=== PATIENT | female | born 1955 | race Caucasian/White ===

== ENCOUNTER 2017-06-27 11:44 | Emergency (ER) | payer MEDICAID ==
[2017-06-27 12:07] VITALS: BP 138/93
[2017-06-27] MEDS ORDERED: SODIUM CHLORIDE 0.9% 1,000 ML IV ONE (12:17)
[2017-06-27 13:02] LABS: BASOPHILS # (AUTO) 0.1 10^3/uL (0.0-0.1); BASOPHILS % (AUTO) 1.1 %; EOSINOPHILS # (AUTO) 0.4 10^3/uL (0.0-0.7); EOSINOPHILS % (AUTO) 2.9 %; HCT - HEMATOCRIT 41.5 % (37.0-47.0); LYMPHOCYTES # (AUTO) 3.8 10^3/uL (1.5-3.5); LYMPHOCYTES % (AUTO) 30.5 %; MEAN CORPUSCULAR HGB CONC 33.8 g/dL (32.0-36.0); MEAN CORPUSCULAR VOLUME 88.7 fL (81.0-99.0); MONOCYTES # (AUTO) 0.9 10^3/uL (0.0-1.0); MONOCYTES % (AUTO) 7.5 %; NEUTROPHILS # (AUTO) 7.2 10^3/uL (1.5-6.6); RED BLOOD COUNT 4.68 10^6/uL (4.20-5.40); RED CELL DISTRIBUTION WIDTH 13.2 % (12.0-15.0); UNCORRECTED WHITE BLOOD COUNT 12.5 x10^3/uL; WHITE BLOOD COUNT 12.5 x10^3/uL (4.8-10.8)
--- NOTE | 2017-06-27 13:04 | ED Physician Documentation ---
History of Present Illness - Stated complaint Stated Complaint: UNCONTROLLED SHAKING - Chief complaint Chief Complaint: General - History obtained from History obtained from: Patient - History of Present Illness Pain level max: 0 Pain level now: 0 Improved by: nothing Worsened by: rest - Additonal information Additional information: Patient is a 61-year-old female who presents to the emergency department with tremors for the last several days. She states that this is actually been ongoing for several years, but worsening over the past few days. She states that she last used methamphetamines 1 month ago. States she is using marijuana several times a day. Has recently had an increase in her dose in [facility]. She also is changing primary care providers. Has an appointment in a few weeks with her new doctor. She denies any headaches, recent trauma. No fevers, chills. She has felt clammy. Review of Systems Constitutional: denies: Fever, Chills, Myalgias Nose: denies: Rhinorrhea / runny nose, Congestion Throat: denies: Oral lesions / sores, Sore throat Cardiac: denies: Chest pain / pressure Respiratory: denies: Cough GI: denies: Abdominal Pain, Nausea, Vomiting, Diarrhea Skin: denies: Rash Musculoskeletal: denies: Neck pain, Back pain Neurologic: denies: Focal weakness, Numbness, Headache PD PAST MEDICAL HISTORY - Past Medical History Past Medical History: Yes Cardiovascular: Hypertension, High cholesterol Respiratory: None Neuro: Tremors GI: None HEENT: None Psych: Depression, Anxiety, Post traumatic stress disorder Derm: None - Past Surgical History 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 - Present Medications Home Medications: Ambulatory Orders Medication Instructions Recorded Confirmed Clonazepam 1 mg PO 07/29/13 04/10/14 FLUoxetine [PROzac] 40 mg PO DAILY 07/29/13 04/10/14 Metoprolol Tartrate [Lopressor] 25 mg PO DAILY 07/29/13 04/10/14 Simvastatin [Zocor] 40 mg PO QPM 07/29/13 04/10/14 Ziprasidone HCl [Geodon] mg PO 04/10/14 04/10/14 - Allergies Allergies/Adverse Reactions: Allergies Allergy/AdvReac Type Severity Reaction Status Date / Time No Known Drug Allergies Allergy Verified 06/27/17 12:07 - Social History Does the pt smoke?: Yes Smoking Status: Current every day smoker Does the pt drink ETOH?: Yes Does the pt have substance abuse?: No - Immunizations Immunizations are current?: Yes - POLST Patient has POLST: No PD ED PE NORMAL - Vitals Vital signs reviewed: Yes - General General: Alert and oriented X 3, No acute distress, Well developed/nourished - HEENT HEENT: Moist mucous membranes, Pharynx benign - Neck Neck: Supple, no meningeal sign - Cardiac Cardiac: RRR, Strong equal pulses - Respiratory Respiratory: No respiratory distress, Clear bilaterally - Abdomen Abdomen: Soft, Non tender, Non distended - Derm Derm: Warm and dry, No rash - Extremities Extremities: Other (resting tremor, worse in the R UE. ) - Neuro Neuro: Alert and oriented X 3, dish carrier 2-12 intact, No motor deficit, No sensory deficit, Normal speech Eye Opening: Spontaneous Motor: Obeys Commands Verbal: Oriented GCS Score: 15 - Psych Psych: Normal mood, Normal affect Results - Vitals Vitals: Vital Signs - 24 hr 06/27/17 11:59 Temperature 35.8 C L Heart Rate 120 H Respiratory 18 Rate Blood Pressure 138/93 H O2 Saturation 96 Oxygen O2 Source Room air - Labs Labs: Laboratory Tests 06/27/17 06/27/17 06/27/17 12:06 12:37 12:37 WBC 12.5 H RBC 4.68 Hgb 14.0 Hct 41.5 MCV 88.7 MCH 30.0 MCHC 33.8 RDW 13.2 Plt Count 340 MPV 8.0 Neut # 7.2 H Lymph # 3.8 H Karnes # 0.9 Eos # 0.4 Baso # 0.1 Absolute Nucleated RBC 0.00 Nucleated RBC % 0.0 Sodium 138 Potassium 3.7 Chloride 103 Carbon Dioxide 25 Anion Gap 10.0 BUN 14 Creatinine 0.7 Estimated GFR (MDRD) 86 L Glucose 115 H POC Whole Bld Glucose 118 H Lactic Acid Calcium 8.7 Total Bilirubin 0.3 AST 22 ALT 25 Alkaline Phosphatase 104 Total Protein 7.3 Albumin 3.9 Globulin 3.4 Albumin/Globulin Ratio 1.1 Lipase 17 L Urine Color Urine Clarity Urine pH Ur Specific [place] Urine Protein Urine Glucose (UA) Urine Ketones Urine Occult Blood Urine Nitrite Urine Bilirubin Urine Urobilinogen Ur Leukocyte Esterase Ur Microscopic Review Urine Culture Comments Urine Opiates Screen Ur Oxycodone Screen Urine Methadone Screen Ur Propoxyphene Screen Ur Barbiturates Screen Ur Tricyclics Screen Ur Phencyclidine Scrn Ur Amphetamine Screen U Methamphetamines Scrn U Benzodiazepines Scrn Urine Cocaine Screen U Cannabinoids Screen 06/27/17 06/27/17 06/27/17 12:37 13:04 13:05 WBC RBC Hgb Hct MCV MCH MCHC RDW Plt Count MPV Neut # Lymph # Karnes # Eos # Baso # Absolute Nucleated RBC Nucleated RBC % Sodium Potassium Chloride Carbon Dioxide Anion Gap BUN Creatinine Estimated GFR (MDRD) Glucose POC Whole Bld Glucose Lactic Acid 2.0 Calcium Total Bilirubin AST ALT Alkaline Phosphatase Total Protein Albumin Globulin Albumin/Globulin Ratio Lipase Urine Color YELLOW Urine Clarity CLEAR Urine pH 6.0 Ur Specific [place] 1.010 Urine Protein NEGATIVE Urine Glucose (UA) NEGATIVE Urine Ketones NEGATIVE Urine Occult Blood NEGATIVE Urine Nitrite NEGATIVE Urine Bilirubin NEGATIVE Urine Urobilinogen 0.2 (NORMAL) Ur Leukocyte Esterase NEGATIVE Ur Microscopic Review NOT INDICATED Urine Culture Comments NOT INDICATED Urine Opiates Screen NEGATIVE Ur Oxycodone Screen NEGATIVE Urine Methadone Screen NEGATIVE Ur Propoxyphene Screen NEGATIVE Ur Barbiturates Screen NEGATIVE Ur Tricyclics Screen NEGATIVE Ur Phencyclidine Scrn NEGATIVE Ur Amphetamine Screen NEGATIVE U Methamphetamines Scrn NEGATIVE U Benzodiazepines Scrn NEGATIVE Urine Cocaine Screen NEGATIVE U Cannabinoids Screen POSITIVE H PD MEDICAL DECISION MAKING - ED course Complexity details: reviewed results, re-evaluated patient, considered differential, d/w patient ED course: Patient is a 61-year-old female who presents to the emergency department with a long history of resting tremor that she says is getting worse over the past few days. No acute findings on laboratory testing. No acute findings on neurological examination other than the resting tremor. No evidence of intracranial hemorrhage, tumor, mass. Will have her follow-up with her neurologist for further evaluation and care. Patient counseled regarding signs and symptoms for which I believe and urgent re-evaluation would be necessary. Patient with good understanding of and agreement to plan and is comfortable going home at this time This document was made in part using voice recognition software. While efforts are made to proofread this document, sound alike and grammatical errors may occur. Departure - Departure Disposition: 01 Home, Self Care Clinical Impression: Tremor Condition: Good Instructions: Essential Tremor ET Follow-Up: your,doctor in 1 week [Other] Comments: The cause of your tremors is unclear today. Your labs are normal. Return if you worsen. You will need further care and testing with your doctor. Discharge Date/Time: 06/27/17 14:34
[2017-06-27 13:13] LABS: ALBUMIN/GLOBULIN RATIO 1.1 (1.0-2.2); BILIRUBIN,TOTAL 0.3 mg/dL (0.2-1.0); CALCIUM 8.7 mg/dL (8.5-10.3); CREATININE 0.7 mg/dL (0.4-1.0); POTASSIUM 3.7 mmol/L (3.5-5.0); TOTAL PROTEIN 7.3 g/dL (6.7-8.2)
[2017-06-27 13:17] LABS: BILIRUBIN,URINE NEGATIVE (NEGATIVE)
[2017-06-27 13:19] LABS: UA CHARGE (STRIP ONLY) YES; UR CULTURE IF IND NOT INDICATED
== END 2017-06-27 14:34 | disposition home or self-care (01) ==
LOC: ED 11:44
DX: R25.1 Tremor, unspecified (principal); I10 Essential (primary) hypertension; F17.200 Nicotine dependence, unspecified, uncomplicated; F32.9 Major depressive disorder, single episode, unspecified; F41.9 Anxiety disorder, unspecified; Z79.899 Other long term (current) drug therapy
CPT/HCPCS: 36415; 80053; 80306; 81001; 81003; 83605; 83690; 85025; 87086; 93005; 99283

== ENCOUNTER 2017-09-07 15:26 | Outpatient (CLI) | payer MEDICAID ==
--- NOTE | 2017-09-08 10:54 | XRAY Report ---
TWO VIEW CHEST: 09/07/2017 CLINICAL INDICATION: Chest discomfort. FINDINGS: Frontal and lateral views of the chest demonstrate a normal cardiac silhouette. The lungs are clear. No effusion or pneumothorax is present. IMPRESSION: NORMAL CHEST. TD: 09/08/2017 10:54
== END 2017-09-07 15:27 | disposition home or self-care (01) ==
LOC: DI.N 15:26
PROVIDERS: ATTEND Nurse Practitioner Gerontology
DX: R07.89 Other chest pain (principal)
CPT/HCPCS: 71046

== ENCOUNTER 2017-09-26 10:58 | Outpatient (CLI) | payer MEDICAID ==
[2017-09-26 12:31] LABS: BASOPHILS # (AUTO) 0.1 10^3/uL (0.0-0.1); BASOPHILS % (AUTO) 1.2 %; EOSINOPHILS # (AUTO) 0.2 10^3/uL (0.0-0.7); EOSINOPHILS % (AUTO) 2.7 %; HGB - HEMOGLOBIN 12.8 g/dL (12.0-16.0); LYMPHOCYTES # (AUTO) 2.6 10^3/uL (1.5-3.5); LYMPHOCYTES % (AUTO) 36.4 %; MEAN CORPUSCULAR HEMOGLOBIN 30.6 pg (27.0-31.0); MEAN CORPUSCULAR HGB CONC 34.4 g/dL (32.0-36.0); MEAN CORPUSCULAR VOLUME 88.9 fL (81.0-99.0); MEAN PLATELET VOLUME 8.7 fL (7.9-10.8); MONOCYTES # (AUTO) 0.6 10^3/uL (0.0-1.0); MONOCYTES % (AUTO) 8.5 %; NEUTROPHILS # (AUTO) 3.7 10^3/uL (1.5-6.6); NEUTROPHILS % (AUTO) 51.2 %; PLT - PLATELET COUNT 307 10^3/uL (130-450); RED CELL DISTRIBUTION WIDTH 13.5 % (12.0-15.0); WHITE BLOOD COUNT 7.1 x10^3/uL (4.8-10.8)
[2017-09-26 12:42] LABS: ALBUMIN 3.8 g/dL (3.2-5.5); ALBUMIN/GLOBULIN RATIO 1.2 (1.0-2.2); ALKALINE PHOSPHATASE 98 IU/L (42-121); ALT ALANINE AMINOTRANSFERASE 19 IU/L (10-60); AST ASPARTATE AMINOTRANSFERASE 17 IU/L (10-42); BILIRUBIN,TOTAL 0.4 mg/dL (0.2-1.0); BUN - BLOOD UREA NITROGEN 14 mg/dL (6-20); CALCIUM 8.9 mg/dL (8.5-10.3); CARBON DIOXIDE - CO2 24 mmol/L (21-32); CHLORIDE 105 mmol/L (101-111); CHOL/HDL RATIO 3.1 (<4.4); CHOLESTEROL 143 mg/dL; CREATININE 0.6 mg/dL (0.4-1.0); GFR - MDRD 102 (>89); GLUCOSE 137 mg/dL (70-100); HDL CHOLESTEROL 46 mg/dL; LDL CHOLESTEROL,CALCULATED 72 mg/dL; LDL/HDL RATIO 1.6 (<4.4); SODIUM 137 mmol/L (135-145); TOTAL PROTEIN 6.9 g/dL (6.7-8.2); VLDL CHOLESTEROL 25 mg/dL
== END 2017-09-26 10:59 | disposition home or self-care (01) ==
LOC: LAB.N 10:58
PROVIDERS: ATTEND Nurse Practitioner Gerontology
DX: Z79.899 Other long term (current) drug therapy (principal)
CPT/HCPCS: 36415; 80053; 80061; 83721; 84443; 85025

== ENCOUNTER 2018-02-17 04:48 | Outpatient (CLI) | payer MEDICAID | END 2018-02-17 04:49 | disposition short-term general hospital (02) | LOC: EMS 04:48 | PROVIDERS: ATTEND Surgery | DX: R05 Cough (principal) | CPT/HCPCS: A0425; A0427; A0999 ==

== ENCOUNTER 2018-02-28 14:23 | Emergency (ER) | payer MEDICAID ==
[2018-02-28 14:57] LABS: BASOPHILS # (AUTO) 0.1 10^3/uL (0.0-0.1); BASOPHILS % (AUTO) 1.1 %; EOSINOPHILS # (AUTO) 0.1 10^3/uL (0.0-0.7); EOSINOPHILS % (AUTO) 1.5 %; LYMPHOCYTES # (AUTO) 3.1 10^3/uL (1.5-3.5); LYMPHOCYTES % (AUTO) 40.5 %; MEAN CORPUSCULAR HGB CONC 34.2 g/dL (32.0-36.0); MEAN CORPUSCULAR VOLUME 87.9 fL (81.0-99.0); MEAN PLATELET VOLUME 7.3 fL (7.9-10.8); MONOCYTES # (AUTO) 0.8 10^3/uL (0.0-1.0); MONOCYTES % (AUTO) 10.3 %; NEUTROPHILS # (AUTO) 3.6 10^3/uL (1.5-6.6); NEUTROPHILS % (AUTO) 46.6 %; PLT - PLATELET COUNT 339 10^3/uL (130-450); RED BLOOD COUNT 4.67 10^6/uL (4.20-5.40); RED CELL DISTRIBUTION WIDTH 13.1 % (12.0-15.0); WHITE BLOOD COUNT 7.7 x10^3/uL (4.8-10.8)
[2018-02-28 15:10] LABS: ALBUMIN/GLOBULIN RATIO 1.2 (1.0-2.2); BILIRUBIN,TOTAL 0.5 mg/dL (0.2-1.0); CREATININE 0.7 mg/dL (0.4-1.0); TOTAL PROTEIN 7.4 g/dL (6.7-8.2)
--- NOTE | 2018-02-28 15:34 | ED Physician Documentation ---
PD HPI ABD PAIN - Stated complaint Stated Complaint: FEVER,ACHES,ABD PX - Chief complaint Chief Complaint: Abd Pain - History obtained from History obtained from: Patient - History of Present Illness Timing - onset: How many weeks ago (she has had abd cramping and some loose stools for a week or so. Had had episode of coughing up a worm and went to [place] [facility]. She brought the worm with her but they did not send to lab or such, per patient. She has kept it in a specimen cup. She was treated with 3 days of Abendazole orally. She says she has had abd cramping since. General malaise and some aches.) Timing - duration: Weeks (1) Timing - details: Gradual onset, Still present, Waxing and waning Quality: Cramping, Aching. No: Fullness/distended Location: All over / everywhere Improved by: BM Worsened by: Eating Associated symptoms: Nausea. No: Fever, Vomiting, Diarrhea (but is loose), Constipation, Melena, Dysuria Similar symptoms before: Has not had sx before Recently seen: Emergency Dept (see above) Review of Systems Constitutional: reports: Myalgias, Fatigue. denies: Fever, Chills Nose: denies: Rhinorrhea / runny nose, Congestion Throat: denies: Sore throat Respiratory: denies: Cough GI: reports: Abdominal Pain, Nausea. 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 - Present Medications Home Medications: Ambulatory Orders Medication Instructions Recorded Confirmed Atorvastatin [Lipitor] 02/28/18 02/28/18 Dicyclomine [Bentyl] 10 mg PO QID PRN #15 capsule 02/28/18 Lisinopril [Zestril] 02/28/18 Lorazepam [Ativan] 1 mg PO BID PRN #12 tablet 02/28/18 Lurasidone HCl [Latuda] 02/28/18 Ondansetron Odt [Zofran] 4 mg TL Q6H PRN #15 tablet 02/28/18 risperiDONE [RisperDAL] 02/28/18 - Allergies Allergies/Adverse Reactions: Allergies Allergy/AdvReac Type Severity Reaction Status Date / Time No Known Drug Allergies Allergy Verified 02/28/18 14:32 - Social History Does the pt smoke?: Yes Smoking Status: Current every day smoker Does the pt drink ETOH?: Yes Does the pt have substance abuse?: No - Immunizations Immunizations are current?: Yes - POLST Patient has POLST: No PD ED PE NORMAL - Vitals Vital signs reviewed: Yes - General General: Alert and oriented X 3, No acute distress, Well developed/nourished, Other (she has the worm in speciment cup - dried and hard now of course. It is pale white colored and about 2 cm long. Can send it for ID to lab. ) - HEENT HEENT: Pharynx benign - Neck Neck: Supple, no meningeal sign, No adenopathy - Cardiac Cardiac: RRR, No murmur - Respiratory Respiratory: Clear bilaterally - Abdomen Abdomen: Normal bowel sounds (somewhat increased sounds), Soft, Non tender, Non distended, No organomegaly - Back Back: No CVA TTP - Derm Derm: Normal color, Warm and dry - Extremities Extremities: No tenderness to palpate, Normal ROM s pain - Neuro Neuro: Alert and oriented X 3, No motor deficit, Normal speech, Other (some resting tremor which she says is chronic from previous side effect to abilify. ) Results - Vitals Vitals: Vital Signs - 24 hr 02/28/18 02/28/18 02/28/18 14:29 15:15 17:46 Temperature 36 C L 37.3 C Heart Rate 126 H 120 H 59 L Respiratory 20 20 18 Rate Blood Pressure 114/94 H 131/96 H 106/78 O2 Saturation 98 97 96 02/28/18 18:39 Temperature 36.8 C Heart Rate 95 Respiratory 22 Rate Blood Pressure 137/101 H O2 Saturation 98 Oxygen O2 Source Room air - Labs Labs: Laboratory Tests 02/28/18 02/28/18 02/28/18 14:49 14:49 16:30 WBC 7.7 RBC 4.67 Hgb 14.0 Hct 41.0 MCV 87.9 MCH 30.0 MCHC 34.2 RDW 13.1 Plt Count 339 MPV 7.3 L Neut # (Auto) 3.6 Lymph # (Auto) 3.1 Wells # (Auto) 0.8 Eos # (Auto) 0.1 Baso # (Auto) 0.1 Absolute Nucleated RBC 0.00 Nucleated RBC % 0.0 Sodium 136 Potassium 4.1 Chloride 102 Carbon Dioxide 25 Anion Gap 9.0 BUN 11 Creatinine 0.7 Estimated GFR (MDRD) 85 L Glucose 122 H Lactic Acid Calcium 9.0 Magnesium 1.9 Total Bilirubin 0.5 AST 19 ALT 20 Alkaline Phosphatase 100 Total Protein 7.4 Albumin 4.0 Globulin 3.4 Albumin/Globulin Ratio 1.2 Lipase 23 Urine Color Urine Clarity Urine pH Ur Specific [place] Urine Protein Urine Glucose (UA) Urine Ketones Urine Occult Blood Urine Nitrite Urine Bilirubin Urine Urobilinogen Ur Leukocyte Esterase Ur Microscopic Review Urine Culture Comments 02/28/18 02/28/18 16:30 17:36 WBC RBC Hgb Hct MCV MCH MCHC RDW Plt Count MPV Neut # (Auto) Lymph # (Auto) Wells # (Auto) Eos # (Auto) Baso # (Auto) Absolute Nucleated RBC Nucleated RBC % Sodium Potassium Chloride Carbon Dioxide Anion Gap BUN Creatinine Estimated GFR (MDRD) Glucose Lactic Acid 1.3 Calcium Magnesium Total Bilirubin AST ALT Alkaline Phosphatase Total Protein Albumin Globulin Albumin/Globulin Ratio Lipase Urine Color YELLOW Urine Clarity CLEAR Urine pH 6.0 Ur Specific [place] 1.010 Urine Protein NEGATIVE Urine Glucose (UA) NEGATIVE Urine Ketones NEGATIVE Urine Occult Blood NEGATIVE Urine Nitrite NEGATIVE Urine Bilirubin NEGATIVE Urine Urobilinogen 0.2 (NORMAL) Ur Leukocyte Esterase NEGATIVE Ur Microscopic Review NOT INDICATED Urine Culture Comments NOT INDICATED PD MEDICAL DECISION MAKING - ED course Complexity details: considered differential (nonfocal abd pain/cramps without tenderness in setting of recent intestinal infestation (question pinworms) and antiparasitic meds. I think it is side effects/effects of those and would improve over next few days. Some anxiety overlay. ), d/w patient - Sepsis Event Vital Signs: Vital Signs - 24 hr 02/28/18 02/28/18 02/28/18 14:29 15:15 17:46 Temperature 36 C L 37.3 C Heart Rate 126 H 120 H 59 L Respiratory 20 20 18 Rate Blood Pressure 114/94 H 131/96 H 106/78 O2 Saturation 98 97 96 02/28/18 18:39 Temperature 36.8 C Heart Rate 95 Respiratory 22 Rate Blood Pressure 137/101 H O2 Saturation 98 Oxygen O2 Source Room air Departure - Departure Disposition: 01 Home, Self Care Clinical Impression: Tremor, Nausea, Abdominal cramping Condition: Stable Record reviewed to determine appropriate education?: Yes Instructions: ED Abdominal Pain Unkn Cause Follow-Up: Jessenia Locke ARNP [Primary Care Provider] - Prescriptions: Dicyclomine [Bentyl] 10 mg PO QID PRN #15 capsule PRN Reason: Spasms Lorazepam [Ativan] 1 mg PO BID PRN #12 tablet PRN Reason: Anxiety Ondansetron Odt [Zofran] 4 mg TL Q6H PRN #15 tablet PRN Reason: Nausea / Vomiting Comments: Drink lots of fluids. I think your stomach cramps are more related to the worms clearing out and this side effects of the anti-parasite medicines. I think your increased tremors and such are from that as well. Let us see how you do over the next few days with some Ativan twice a day if needed for the tremors and ondansetron if needed for nausea and dicyclomine for cramps as needed. Recheck if not improving over the next couple of days. Discharge Date/Time: 02/28/18 19:09
[2018-02-28] MEDS ORDERED: ONDANSETRON 4 MG/2 ML VIAL IVP STA (16:19)
[2018-02-28] MEDS ORDERED: KETOROLAC 60 MG/2 ML VIAL IVP STA (16:19)
[2018-02-28] MEDS ORDERED: SODIUM CHLORIDE 0.9% 1,000 ML IV ONE (16:19)
[2018-02-28] MEDS ORDERED: LORazepam 2 MG/ML VIAL IVP STA (16:20)
--- NOTE | 2018-02-28 17:03 | XRAY Report ---
Reason: cough and fever Procedure Date: 02/28/2018 Accession Number: [id number] / [id number] Procedure: XR - Chest 2 View X-Ray CPT Code: 55222 FULL RESULT: EXAM: CHEST RADIOGRAPHY EXAM DATE: 02/28/2018 04:31 PM. CLINICAL HISTORY: Cough and fever. COMPARISON: None. TECHNIQUE: 2 views. FINDINGS: Lungs/Pleura: No focal opacities evident. No pleural effusion. No pneumothorax. Normal volumes. Mediastinum: There is very mild atherosclerotic calcification the aortic arch. The heart size and mediastinal silhouette otherwise appears normal. Other: None. IMPRESSION: Negative for an acute cardiopulmonary abnormality. RADIA
[2018-02-28 17:41] LABS: BILIRUBIN,URINE NEGATIVE (NEGATIVE); GLUCOSE, URINE (UA) NEGATIVE (NEGATIVE); KETONES,URINE (UA) NEGATIVE (NEGATIVE); LEUKOCYTE ESTERASE, URINE NEGATIVE (NEGATIVE); NITRITE,URINE NEGATIVE (NEGATIVE); OCCULT BLOOD,URINE NEGATIVE (NEGATIVE); PROTEIN,URINE NEGATIVE (NEGATIVE); UROBILINOGEN,URINE 0.2 (NORMAL) E.U./dL (NORMAL)
[2018-02-28 17:42] LABS: CLARITY,URINE CLEAR (CLEAR)
[2018-02-28 18:40] VITALS: BP 137/101
== END 2018-02-28 19:09 | disposition home or self-care (01) ==
LOC: ED 14:23
DX: R25.1 Tremor, unspecified (principal); R11.0 Nausea; R10.9 Unspecified abdominal pain; I10 Essential (primary) hypertension; F17.200 Nicotine dependence, unspecified, uncomplicated; F41.9 Anxiety disorder, unspecified
CPT/HCPCS: 36415; 71046; 80053; 81003; 81599; 83605; 83690; 83735; 85025; 96361; 96374; 96375; 99283; J2060; 81001; 87086; 87177; 87209

== ENCOUNTER 2018-05-18 15:51 | Outpatient (CLI) | payer MEDICAID ==
[2018-05-18 16:29] LABS: MUDS CUTOFF CONCENTRATIONS CUTOFF CONC BELOW:
[2018-05-18 16:44] LABS: AMPHETAMINE SCREEN,URINE POSITIVE (NEGATIVE); BENZODIAZEPINES SCREEN, URINE NEGATIVE (NEGATIVE); COCAINE SCREEN URINE NEGATIVE (NEGATIVE); METHADONE SCREEN, URINE NEGATIVE (NEGATIVE); METHAMPHETAMINES SCREEN, URINE POSITIVE (NEGATIVE); OPIATE SCREEN, URINE NEGATIVE (NEGATIVE); OXYCODONE SCREEN, URINE NEGATIVE (NEGATIVE); PROPOXYPHENE SCREEN, URINE NEGATIVE (NEGATIVE); TRICYCLIC ANTIDEPRESSANT,URINE NEGATIVE (NEGATIVE)
== END 2018-05-18 15:52 | disposition home or self-care (01) ==
LOC: LAB 15:51
PROVIDERS: ATTEND Nurse Practitioner Psychiatric/Mental Health
DX: F33.3 Major depressive disorder, recurrent, severe with psychotic symptoms (principal)
CPT/HCPCS: 80306

== ENCOUNTER 2018-08-25 14:37 | Emergency (ER) | payer MEDICAID ==
[2018-08-25 14:54] VITALS: BP 124/76
--- NOTE | 2018-08-25 16:17 | ED Physician Documentation ---
History of Present Illness - Stated complaint Stated Complaint: RASH - Chief complaint Chief Complaint: Wound - History obtained from History obtained from: Patient - History of Present Illness Timing: Other (several months) Pain level max: 3 Pain level now: 2 Improved by: rest Worsened by: walking - Additonal information Additional information: 62-year-old female presents to the emergency department complaining of a rash to the scalp for the past several months. She also complains of a rash on her arms mainly on her hands and fingers. She also is complaining of left hip pain for the past 6 weeks. Worse with walking, better with rest. Has not taken anything for this. No fall. She has a history of methamphetamine use, states she has not used in 8 months, and a stated that her test was positive for methamphetamines in May she states that she "did" methamphetamines at that time but was not "using them". Denies any current methamphetamine use. 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 - Present Medications Home Medications: Ambulatory Orders Medication Instructions Recorded Confirmed Atorvastatin [Lipitor] 10 mg ORAL DAILY 02/28/18 02/28/18 Lisinopril [Zestril] 10 mg ORAL DAILY 02/28/18 Lurasidone HCl [Latuda] 8 mg ORAL DAILY 02/28/18 Ketoconazole 1 applic TP ONCE #1 shampoo 08/25/18 Meloxicam [Mobic] 15 mg PO DAILY PRN #20 tablet 08/25/18 - Allergies Allergies/Adverse Reactions: Allergies Allergy/AdvReac Type Severity Reaction Status Date / Time No Known Drug Allergies Allergy Verified 02/28/18 14:32 - Social History Does the pt smoke?: Yes Smoking Status: Current every day smoker Does the pt drink ETOH?: Yes Does the pt have substance abuse?: No - Immunizations Immunizations are current?: Yes - POLST Patient has POLST: No PD ED PE NORMAL - Vitals Vital signs reviewed: Yes - General General: Alert and oriented X 3, No acute distress - HEENT HEENT: Moist mucous membranes - Neck Neck: Supple, no meningeal sign - Cardiac Cardiac: RRR - Respiratory Respiratory: No respiratory distress, Clear bilaterally - Abdomen Abdomen: Soft, Non tender - Derm Derm: Warm and dry, No rash (no rash over the arms or chest), Other (Does have a slight scaly rash to the top of the head. Excoriation laguans present.) - Extremities Extremities: No tenderness to palpate, Normal ROM s pain, No edema, Other (Normal examination of the bilateral hips) - Neuro Neuro: Alert and oriented X 3, No motor deficit, No sensory deficit Results - Vitals Vitals: Vital Signs - 24 hr 08/25/18 14:49 Temperature 36.6 C Heart Rate 107 H Respiratory 18 Rate Blood Pressure 124/76 O2 Saturation 98 Oxygen O2 Source Room air PD MEDICAL DECISION MAKING - ED course Complexity details: considered differential, d/w patient ED course: Patient with what appears to be tinea capitis as well as osteoarthritis of the hips. There is no visible rash on the arms. Will prescribe ketoconazole shampoo and meloxicam. We will have her follow-up with her doctor for further evaluation and care. Ambulating with a steady gait. No limp. Patient counseled regarding signs and symptoms for which I believe and urgent re- evaluation would be necessary. Patient with good understanding of and agreement to plan and is comfortable going home at this time This document was made in part using voice recognition software. While efforts are made to proofread this document, sound alike and grammatical errors may occur. Departure - Departure Disposition: 01 Home, Self Care Clinical Impression: Tinea capitis Osteoarthritis Qualifiers: Osteoarthritis location: hip Osteoarthritis type: primary Laterality: left Qualified Code(s): M16.12 - Unilateral primary osteoarthritis, left hip Condition: Good Instructions: ED Degenerative Joint Disease, ED Dermatitis Ringworm Scalp Follow-Up: Jessenia Locke ARNP [Primary Care Provider] - Within 1 week Prescriptions: Ketoconazole 1 applic TP ONCE #1 shampoo Meloxicam [Mobic] 15 mg PO DAILY PRN #20 tablet PRN Reason: pain Comments: Use the medications as prescribed. Return if you worsen. Follow-up with your doctor for further care.
== END 2018-08-25 16:27 | disposition home or self-care (01) ==
LOC: ED 14:37
DX: B35.0 Tinea barbae and tinea capitis (principal); M16.12 Unilateral primary osteoarthritis, left hip; I10 Essential (primary) hypertension; F17.200 Nicotine dependence, unspecified, uncomplicated
CPT/HCPCS: 99283

== ENCOUNTER 2018-09-03 13:19 | Outpatient (CLI) | payer MEDICAID | END 2018-09-03 13:20 | disposition home or self-care (01) | LOC: RT.N 13:19 | PROVIDERS: ATTEND Nurse Practitioner Gerontology | DX: Z79.899 Other long term (current) drug therapy (principal) | CPT/HCPCS: 93005 ==

== ENCOUNTER 2018-09-03 13:45 | Outpatient (CLI) | payer MEDICAID ==
[2018-09-03 19:55] LABS: BASOPHILS # (AUTO) 0.1 10^3/uL (0.0-0.1); BASOPHILS % (AUTO) 0.9 %; EOSINOPHILS # (AUTO) 0.1 10^3/uL (0.0-0.7); EOSINOPHILS % (AUTO) 1.3 %; HGB - HEMOGLOBIN 13.4 g/dL (12.0-16.0); LYMPHOCYTES # (AUTO) 3.1 10^3/uL (1.5-3.5); LYMPHOCYTES % (AUTO) 44.4 %; MEAN CORPUSCULAR HEMOGLOBIN 29.6 pg (27.0-31.0); MEAN CORPUSCULAR HGB CONC 32.9 g/dL (32.0-36.0); MEAN CORPUSCULAR VOLUME 89.9 fL (81.0-99.0); MEAN PLATELET VOLUME 8.2 fL (7.9-10.8); MONOCYTES # (AUTO) 0.5 10^3/uL (0.0-1.0); MONOCYTES % (AUTO) 7.5 %; NEUTROPHILS # (AUTO) 3.2 10^3/uL (1.5-6.6); NEUTROPHILS % (AUTO) 45.9 %; PLT - PLATELET COUNT 348 10^3/uL (130-450); RED BLOOD COUNT 4.53 10^6/uL (4.20-5.40); RED CELL DISTRIBUTION WIDTH 13.8 % (12.0-15.0); WHITE BLOOD COUNT 7.1 x10^3/uL (4.8-10.8)
== END 2018-09-03 23:59 | disposition home or self-care (01) ==
LOC: LAB.N 13:45
PROVIDERS: ATTEND Nurse Practitioner Psychiatric/Mental Health
DX: F33.3 Major depressive disorder, recurrent, severe with psychotic symptoms (principal)
CPT/HCPCS: 36415; 85025

== ENCOUNTER 2019-01-01 15:58 | Outpatient (CLI) | payer MEDICAID | END 2019-01-01 15:59 | disposition critical access hospital (66) | LOC: EMS 15:58 | PROVIDERS: ATTEND Surgery | DX: R44.0 Auditory hallucinations (principal) | CPT/HCPCS: A0425; A0429; A0999 ==

== ENCOUNTER 2019-01-01 16:45 | Emergency (ER) | payer MEDICAID ==
[2019-01-01 17:16] LABS: BASOPHILS # (AUTO) 0.1 10^3/uL (0.0-0.1); BASOPHILS % (AUTO) 0.6 %; EOSINOPHILS # (AUTO) 0.1 10^3/uL (0.0-0.7); EOSINOPHILS % (AUTO) 0.9 %; HGB - HEMOGLOBIN 13.3 g/dL (12.0-16.0); LYMPHOCYTES % (AUTO) 25.5 %; MEAN CORPUSCULAR HGB CONC 33.2 g/dL (32.0-36.0); MEAN CORPUSCULAR VOLUME 90.3 fL (81.0-99.0); MEAN PLATELET VOLUME 9.9 fL (7.9-10.8); MONOCYTES # (AUTO) 0.6 10^3/uL (0.0-1.0); NEUTROPHILS # (AUTO) 5.1 10^3/uL (1.5-6.6); NEUTROPHILS % (AUTO) 64.7 %; PLT - PLATELET COUNT 314 10^3/uL (130-450); RED BLOOD COUNT 4.44 10^6/uL (4.20-5.40); RED CELL DISTRIBUTION WIDTH 12.4 % (12.0-15.0); WHITE BLOOD COUNT 7.9 x10^3/uL (4.8-10.8)
[2019-01-01 17:31] LABS: ACETAMINOPHEN < 10 ug/mL (10-30); ALBUMIN 4.3 g/dL (3.2-5.5); ALBUMIN/GLOBULIN RATIO 1.4 (1.0-2.2); ALKALINE PHOSPHATASE 88 IU/L (42-121); ALT ALANINE AMINOTRANSFERASE 22 IU/L (10-60); AST ASPARTATE AMINOTRANSFERASE 18 IU/L (10-42); BILIRUBIN,TOTAL 0.7 mg/dL (0.2-1.0); BUN - BLOOD UREA NITROGEN 24 mg/dL (6-20); CALCIUM 9.1 mg/dL (8.5-10.3); CARBON DIOXIDE - CO2 25 mmol/L (21-32); CHLORIDE 102 mmol/L (101-111); CREATININE 0.7 mg/dL (0.4-1.0); GFR - MDRD 85 (>89); GLUCOSE 125 mg/dL (70-100); LIPASE 24 U/L (22-51); SALICYLATE < 6.0 mg/dL; SODIUM 140 mmol/L (135-145); TOTAL PROTEIN 7.3 g/dL (6.7-8.2)
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
[2019-01-01 21:16] LABS: MUDS CUTOFF CONCENTRATIONS CUTOFF CONC BELOW:
[2019-01-01 21:18] LABS: BILIRUBIN,URINE NEGATIVE (NEGATIVE); GLUCOSE, URINE (UA) NEGATIVE (NEGATIVE); KETONES,URINE (UA) 15 mg/dL (NEGATIVE); LEUKOCYTE ESTERASE, URINE NEGATIVE (NEGATIVE); NITRITE,URINE NEGATIVE (NEGATIVE); OCCULT BLOOD,URINE NEGATIVE (NEGATIVE); PROTEIN,URINE NEGATIVE (NEGATIVE); UROBILINOGEN,URINE 0.2 (NORMAL) E.U./dL (NORMAL)
[2019-01-01 21:19] VITALS: BP 167/103
[2019-01-01 21:22] LABS: CLARITY,URINE CLEAR (CLEAR)
[2019-01-01 21:29] LABS: COCAINE SCREEN URINE NEGATIVE (NEGATIVE)
[2019-01-01 21:30] LABS: AMPHETAMINE SCREEN,URINE POSITIVE (NEGATIVE); BENZODIAZEPINES SCREEN, URINE NEGATIVE (NEGATIVE); METHADONE SCREEN, URINE NEGATIVE (NEGATIVE); METHAMPHETAMINES SCREEN, URINE POSITIVE (NEGATIVE); OPIATE SCREEN, URINE NEGATIVE (NEGATIVE); OXYCODONE SCREEN, URINE NEGATIVE (NEGATIVE); PROPOXYPHENE SCREEN, URINE NEGATIVE (NEGATIVE); TRICYCLIC ANTIDEPRESSANT,URINE NEGATIVE (NEGATIVE)
== END 2019-01-01 21:19 | disposition home or self-care (01) ==
LOC: EDUNIT# → ED 16:45
DX: F15.151 Other stimulant abuse with stimulant-induced psychotic disorder with hallucinations (principal); I10 Essential (primary) hypertension; F17.200 Nicotine dependence, unspecified, uncomplicated
CPT/HCPCS: 80053; 80306; 80307; 80320; 80329; 81001; 81003; 83690; 84443; 85025; 87086; 99283; 99284

== ENCOUNTER 2019-03-10 20:55 | Outpatient (CLI) | payer MEDICAID | END 2019-03-10 20:56 | disposition EMS.NT | LOC: EMS 20:55 | PROVIDERS: ATTEND Surgery | DX: R44.0 Auditory hallucinations (principal) ==

== ENCOUNTER 2019-03-19 14:29 | Outpatient (CLI) | payer MEDICAID ==
--- NOTE | 2019-03-20 17:25 | XRAY Report ---
Reason: R elbow pain Procedure Date: 03/19/2019 Accession Number: [id number] / [id number] Procedure: XRN - Elbow 3 View RT CPT Code: FULL RESULT: EXAM: RIGHT ELBOW RADIOGRAPHY EXAM DATE: 03/19/2019 03:26 PM. CLINICAL HISTORY: R elbow pain. COMPARISON: None. TECHNIQUE: 3 views. FINDINGS: Bones: Normal. No fractures or bone lesions. Joints: Normal. No effusion. No subluxation. Soft Tissues: Normal. No soft tissue swelling. IMPRESSION: Normal elbow radiography. RADIA
== END 2019-03-19 14:30 | disposition home or self-care (01) ==
LOC: DI.N 14:29
PROVIDERS: ATTEND Nurse Practitioner Gerontology
DX: M25.521 Pain in right elbow (principal)

== ENCOUNTER 2019-04-05 13:34 | Emergency (ER) | payer MEDICAID ==
[2019-04-05] MEDS ORDERED: SODIUM CHLORIDE 0.9% 1,000 ML IV ONE (14:05)
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
[2019-04-05 14:18] LABS: BASOPHILS # (AUTO) 0.1 10^3/uL (0.0-0.1); EOSINOPHILS # (AUTO) 0.1 10^3/uL (0.0-0.7); EOSINOPHILS % (AUTO) 1.2 %; HGB - HEMOGLOBIN 12.7 g/dL (12.0-16.0); LYMPHOCYTES # (AUTO) 2.5 10^3/uL (1.5-3.5); LYMPHOCYTES % (AUTO) 30.6 %; MEAN CORPUSCULAR HEMOGLOBIN 30.4 pg (27.0-31.0); MEAN CORPUSCULAR HGB CONC 33.1 g/dL (32.0-36.0); MEAN CORPUSCULAR VOLUME 91.9 fL (81.0-99.0); MEAN PLATELET VOLUME 9.7 fL (7.9-10.8); MONOCYTES # (AUTO) 0.7 10^3/uL (0.0-1.0); MONOCYTES % (AUTO) 8.2 %; NEUTROPHILS # (AUTO) 4.7 10^3/uL (1.5-6.6); NEUTROPHILS % (AUTO) 58.6 %; PLT - PLATELET COUNT 329 10^3/uL (130-450); RED BLOOD COUNT 4.18 10^6/uL (4.20-5.40); RED CELL DISTRIBUTION WIDTH 12.9 % (12.0-15.0)
[2019-04-05 14:32] LABS: ACETAMINOPHEN < 10 ug/mL (10-30); ALBUMIN 4.3 g/dL (3.2-5.5); ALBUMIN/GLOBULIN RATIO 1.4 (1.0-2.2); ALKALINE PHOSPHATASE 88 IU/L (42-121); ALT ALANINE AMINOTRANSFERASE 20 IU/L (10-60); AST ASPARTATE AMINOTRANSFERASE 15 IU/L (10-42); BILIRUBIN,TOTAL 0.5 mg/dL (0.2-1.0); BUN - BLOOD UREA NITROGEN 24 mg/dL (6-20); CALCIUM 9.1 mg/dL (8.5-10.3); CARBON DIOXIDE - CO2 24 mmol/L (21-32); CHLORIDE 106 mmol/L (101-111); CREATININE 0.6 mg/dL (0.4-1.0); GFR - MDRD 102 (>89); GLUCOSE 109 mg/dL (70-100); LIPASE 26 U/L (22-51); SALICYLATE < 6.0 mg/dL; SODIUM 141 mmol/L (135-145); TOTAL PROTEIN 7.4 g/dL (6.7-8.2)
[2019-04-05] MEDS ORDERED: LORazepam 2 MG/ML VIAL IVP STA (15:07)
[2019-04-05 16:29] VITALS: BP 113/83
[2019-04-05 16:50] LABS: MUDS CUTOFF CONCENTRATIONS CUTOFF CONC BELOW:
[2019-04-05 16:59] LABS: BILIRUBIN,URINE NEGATIVE (NEGATIVE); GLUCOSE, URINE (UA) NEGATIVE (NEGATIVE); KETONES,URINE (UA) NEGATIVE (NEGATIVE); LEUKOCYTE ESTERASE, URINE NEGATIVE (NEGATIVE); NITRITE,URINE NEGATIVE (NEGATIVE); OCCULT BLOOD,URINE NEGATIVE (NEGATIVE); PH,URINE 5.5 PH (5.0-7.5); PROTEIN,URINE NEGATIVE (NEGATIVE); UROBILINOGEN,URINE 0.2 (NORMAL) E.U./dL (NORMAL)
[2019-04-05 17:02] LABS: CLARITY,URINE CLEAR (CLEAR)
[2019-04-05 17:10] LABS: AMPHETAMINE SCREEN,URINE POSITIVE (NEGATIVE); BENZODIAZEPINES SCREEN, URINE NEGATIVE (NEGATIVE); COCAINE SCREEN URINE NEGATIVE (NEGATIVE); METHADONE SCREEN, URINE NEGATIVE (NEGATIVE); METHAMPHETAMINES SCREEN, URINE POSITIVE (NEGATIVE); OPIATE SCREEN, URINE NEGATIVE (NEGATIVE); OXYCODONE SCREEN, URINE NEGATIVE (NEGATIVE); PROPOXYPHENE SCREEN, URINE NEGATIVE (NEGATIVE); TRICYCLIC ANTIDEPRESSANT,URINE NEGATIVE (NEGATIVE)
== END 2019-04-05 17:25 | disposition home or self-care (01) ==
LOC: ED 13:34
DX: F15.10 Other stimulant abuse, uncomplicated (principal); T75.4XXA Electrocution, initial encounter; I10 Essential (primary) hypertension; F17.200 Nicotine dependence, unspecified, uncomplicated
CPT/HCPCS: 36415; 80053; 80306; 80307; 80320; 80329; 81003; 83690; 84443; 85025; 96360; 99283; 99284; J2060; 81001; 87086

== ENCOUNTER 2019-05-05 09:13 | Outpatient (CLI) | payer MEDICAID | END 2019-05-05 09:14 | disposition EMS.NT | LOC: EMS 09:13 | PROVIDERS: ATTEND Surgery | DX: H57.13 Ocular pain, bilateral (principal) ==

== ENCOUNTER 2019-06-07 12:55 | Emergency (ER) | payer MEDICAID ==
--- NOTE | 2019-06-07 13:09 | ED Physician Documentation ---
PD HPI MHE - Stated complaint Stated Complaint: MHE - Chief complaint Chief Complaint: MHE - History obtained from History obtained from: Patient - History of Present Illness Primary symptom: Other (63-year-old woman brought in detained for mental health evaluation. She denies using methamphetamines, but she has a significant history of this. 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 - Present Medications Home Medications: Ambulatory Orders Medication Instructions Recorded Confirmed Atorvastatin [Lipitor] 10 mg ORAL DAILY 02/28/18 02/28/18 Lisinopril [Zestril] 10 mg ORAL DAILY 02/28/18 Lurasidone HCl [Latuda] 8 mg ORAL DAILY 02/28/18 Ketoconazole 1 applic TP ONCE #1 shampoo 08/25/18 Meloxicam [Mobic] 15 mg PO DAILY PRN #20 tablet 08/25/18 - Allergies Allergies/Adverse Reactions: Allergies Allergy/AdvReac Type Severity Reaction Status Date / Time No Known Drug Allergies Allergy Verified 06/07/19 12:58 - Social History Does the pt smoke?: Yes Smoking Status: Current every day smoker Does the pt drink ETOH?: Yes Does the pt have substance abuse?: No - Immunizations Immunizations are current?: Yes - POLST Patient has POLST: No PD ED PE NORMAL - Vitals Vital signs reviewed: Yes - General General: Other (She is agitated and hypervigilant; Disheveled) - HEENT HEENT: PERRL, EOMI - Neck Neck: Supple, no meningeal sign, No bony TTP - Cardiac Cardiac: RRR, No murmur - Respiratory Respiratory: No respiratory distress, Clear bilaterally - Abdomen Abdomen: Soft, Non tender - Back Back: No CVA TTP, No spinal TTP - Derm Derm: Normal color, Warm and dry - Neuro Neuro: Alert and oriented X 3, No motor deficit, No sensory deficit, Normal speech - Psych Psych: Other (Agitated, intermittently cooperative.) Results - Vitals Vitals: Vital Signs - 24 hr 06/07/19 06/07/19 06/08/19 12:58 23:19 07:39 Temperature 36.8 C 36.5 C Heart Rate 120 H 95 86 Respiratory 16 22 18 Rate Blood Pressure 164/94 H 110/83 H 150/115 H O2 Saturation 98 97 96 Oxygen O2 Source Room air - Labs Labs: Laboratory Tests 06/07/19 06/07/19 06/07/19 13:15 13:15 13:15 WBC 7.8 RBC 4.22 Hgb 12.7 Hct 39.1 MCV 92.7 MCH 30.1 MCHC 32.5 RDW 12.7 Plt Count 343 MPV 10.2 Neut # (Auto) 4.5 Lymph # (Auto) 2.5 [place] # (Auto) 0.7 Eos # (Auto) 0.0 Baso # (Auto) 0.1 Absolute Nucleated RBC 0.00 Nucleated RBC % 0.0 Sodium 139 Potassium 3.7 Chloride 103 Carbon Dioxide 24 Anion Gap 12.0 BUN 24 H Creatinine 0.6 Estimated GFR (MDRD) 102 Glucose 113 H Calcium 9.4 Total Bilirubin 0.8 AST 23 ALT 20 Alkaline Phosphatase 77 Total Protein 7.2 Albumin 4.4 Globulin 2.8 Albumin/Globulin Ratio 1.6 Lipase 22 TSH 0.60 Urine Color Urine Clarity Urine pH Ur Specific [place] Urine Protein Urine Glucose (UA) Urine Ketones Urine Occult Blood Urine Nitrite Urine Bilirubin Urine Urobilinogen Ur Leukocyte Esterase Ur Microscopic Review Urine Culture Comments Salicylates < 6.0 Urine Opiates Screen Ur Oxycodone Screen Urine Methadone Screen Ur Propoxyphene Screen Acetaminophen < 10 L Ur Barbiturates Screen Ur Tricyclics Screen Ur Phencyclidine Scrn Ur Amphetamine Screen U Methamphetamines Scrn U Benzodiazepines Scrn Urine Cocaine Screen U Cannabinoids Screen Ethyl Alcohol < 5.0 06/07/19 14:50 WBC RBC Hgb Hct MCV MCH MCHC RDW Plt Count MPV Neut # (Auto) Lymph # (Auto) [place] # (Auto) Eos # (Auto) Baso # (Auto) Absolute Nucleated RBC Nucleated RBC % Sodium Potassium Chloride Carbon Dioxide Anion Gap BUN Creatinine Estimated GFR (MDRD) Glucose Calcium Total Bilirubin AST ALT Alkaline Phosphatase Total Protein Albumin Globulin Albumin/Globulin Ratio Lipase TSH Urine Color YELLOW Urine Clarity CLEAR Urine pH 5.5 Ur Specific [place] 1.025 Urine Protein NEGATIVE Urine Glucose (UA) NEGATIVE Urine Ketones [place] Urine Occult Blood NEGATIVE Urine Nitrite NEGATIVE Urine Bilirubin NEGATIVE Urine Urobilinogen 0.2 (NORMAL) Ur Leukocyte Esterase NEGATIVE Ur Microscopic Review NOT INDICATED Urine Culture Comments NOT INDICATED Salicylates Urine Opiates Screen NEGATIVE Ur Oxycodone Screen NEGATIVE Urine Methadone Screen NEGATIVE Ur Propoxyphene Screen NEGATIVE Acetaminophen Ur Barbiturates Screen NEGATIVE Ur Tricyclics Screen NEGATIVE Ur Phencyclidine Scrn NEGATIVE Ur Amphetamine Screen POSITIVE H U Methamphetamines Scrn POSITIVE H U Benzodiazepines Scrn NEGATIVE Urine Cocaine Screen NEGATIVE U Cannabinoids Screen POSITIVE H Ethyl Alcohol PD MEDICAL DECISION MAKING - ED course ED course: 63-year-old woman with history of methamphetamine abuse presents brought in detained for mental health evaluation. She has complaints of basically parasitosis. Did require some sedation here she was quite agitated. Social work deferred to the DCR and TYLER Hairston came in and saw her and is trying to find secure detox facility for her. Care to Dr Santos at shift chg to F/U on DCR dispo and complete cobras. She is stable for transport for detox/psych issues. Departure - Departure Disposition: [facility] Hosp/Unit DC/Xfer Clinical Impression: Methamphetamine abuse Condition: Good Record reviewed to determine appropriate education?: Yes Instructions: ED Drug Abuse General Discharge Date/Time: 06/08/19 08:21
[2019-06-07 13:23] LABS: BASOPHILS # (AUTO) 0.1 10^3/uL (0.0-0.1); EOSINOPHILS % (AUTO) 0.4 %; HGB - HEMOGLOBIN 12.7 g/dL (12.0-16.0); LYMPHOCYTES # (AUTO) 2.5 10^3/uL (1.5-3.5); LYMPHOCYTES % (AUTO) 31.8 %; MEAN CORPUSCULAR HEMOGLOBIN 30.1 pg (27.0-31.0); MEAN CORPUSCULAR HGB CONC 32.5 g/dL (32.0-36.0); MEAN CORPUSCULAR VOLUME 92.7 fL (81.0-99.0); MEAN PLATELET VOLUME 10.2 fL (7.9-10.8); MONOCYTES # (AUTO) 0.7 10^3/uL (0.0-1.0); MONOCYTES % (AUTO) 8.8 %; NEUTROPHILS # (AUTO) 4.5 10^3/uL (1.5-6.6); NEUTROPHILS % (AUTO) 57.7 %; PLT - PLATELET COUNT 343 10^3/uL (130-450); RED BLOOD COUNT 4.22 10^6/uL (4.20-5.40); RED CELL DISTRIBUTION WIDTH 12.7 % (12.0-15.0); WHITE BLOOD COUNT 7.8 x10^3/uL (4.8-10.8)
[2019-06-07 14:19] LABS: ACETAMINOPHEN < 10 ug/mL (10-30); ALBUMIN 4.4 g/dL (3.2-5.5); ALBUMIN/GLOBULIN RATIO 1.6 (1.0-2.2); ALKALINE PHOSPHATASE 77 IU/L (42-121); ALT ALANINE AMINOTRANSFERASE 20 IU/L (10-60); AST ASPARTATE AMINOTRANSFERASE 23 IU/L (10-42); BILIRUBIN,TOTAL 0.8 mg/dL (0.2-1.0); BUN - BLOOD UREA NITROGEN 24 mg/dL (6-20); CALCIUM 9.4 mg/dL (8.5-10.3); CARBON DIOXIDE - CO2 24 mmol/L (21-32); CHLORIDE 103 mmol/L (101-111); CREATININE 0.6 mg/dL (0.4-1.0); GFR - MDRD 102 (>89); GLUCOSE 113 mg/dL (70-100); LIPASE 22 U/L (22-51); SALICYLATE < 6.0 mg/dL; SODIUM 139 mmol/L (135-145); TOTAL PROTEIN 7.2 g/dL (6.7-8.2)
[2019-06-07 15:07] LABS: MUDS CUTOFF CONCENTRATIONS CUTOFF CONC BELOW:
[2019-06-07 15:10] LABS: BILIRUBIN,URINE NEGATIVE (NEGATIVE); GLUCOSE, URINE (UA) NEGATIVE (NEGATIVE); KETONES,URINE (UA) TRACE mg/dL (NEGATIVE); LEUKOCYTE ESTERASE, URINE NEGATIVE (NEGATIVE); NITRITE,URINE NEGATIVE (NEGATIVE); OCCULT BLOOD,URINE NEGATIVE (NEGATIVE); PH,URINE 5.5 PH (5.0-7.5); PROTEIN,URINE NEGATIVE (NEGATIVE); UROBILINOGEN,URINE 0.2 (NORMAL) E.U./dL (NORMAL)
[2019-06-07 15:12] LABS: CLARITY,URINE CLEAR (CLEAR)
[2019-06-07 15:29] LABS: AMPHETAMINE SCREEN,URINE POSITIVE (NEGATIVE); BENZODIAZEPINES SCREEN, URINE NEGATIVE (NEGATIVE); COCAINE SCREEN URINE NEGATIVE (NEGATIVE); METHADONE SCREEN, URINE NEGATIVE (NEGATIVE); METHAMPHETAMINES SCREEN, URINE POSITIVE (NEGATIVE); OPIATE SCREEN, URINE NEGATIVE (NEGATIVE); OXYCODONE SCREEN, URINE NEGATIVE (NEGATIVE); PROPOXYPHENE SCREEN, URINE NEGATIVE (NEGATIVE); TRICYCLIC ANTIDEPRESSANT,URINE NEGATIVE (NEGATIVE)
[2019-06-07] MEDS ORDERED: OLANZapine 10 MG VIAL IM STA (16:06)
[2019-06-08] MEDS ORDERED: OLANZapine ODT 5 MG TABLET TL STA (00:05)
[2019-06-08] MEDS ORDERED: ACETAMINOPHEN 325 MG TABLET PO STA (05:34)
[2019-06-08] MEDS ORDERED: LORazepam 1 MG TABLET PO STA (07:12)
[2019-06-08 07:42] VITALS: BP 150/115
== END 2019-06-08 08:21 ==
LOC: ED 12:55
DX: F15.10 Other stimulant abuse, uncomplicated (principal); I10 Essential (primary) hypertension; F17.200 Nicotine dependence, unspecified, uncomplicated
CPT/HCPCS: 36415; 80053; 80306; 80307; 80320; 80329; 81003; 83690; 84443; 85025; 96372; 99281; 99283; A9270; J8499; 81001; 87086

== ENCOUNTER 2021-04-12 08:44 | Emergency (ER) | payer MEDICAID ==
[2021-04-12 08:52] VITALS: BP 123/79
--- NOTE | 2021-04-12 09:29 | ED Physician Documentation ---
PD HPI LOWER EXT INJURY - Stated complaint Stated Complaint: RT KNEE PX - Chief complaint Chief Complaint: Ext Problem - History obtained from History obtained from: Patient - History of Present Illness PD HPI LOW EXT INJURY LOCATION: Right, Knee Type of injury: Fall (she had tripped and fell forward onto right knee without pain initially. Now with a week of anterior pain, and feeling of clicking and poping of knee with ROM and walking.) Where injury occurred: Street Timing - onset: How many weeks ago (1) Timing - duration: Weeks (1) Timing - details: Gradual onset, Still present Improved by: Rest Worsened by: Palpating Associated symptoms: Swelling. 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 - Present Medications Home Medications: Ambulatory Orders Medication Instructions Recorded Confirmed Meloxicam [Mobic] 7.5 mg PO BID 15 Days #30 tablet 04/12/21 - Allergies Allergies/Adverse Reactions: Allergies Allergy/AdvReac Type Severity Reaction Status Date / Time No Known Drug Allergies Allergy Verified 04/12/21 08:52 - Social History Does the pt smoke?: Yes Smoking Status: Current every day smoker Does the pt drink ETOH?: Yes Does the pt have substance abuse?: No - Immunizations Immunizations are current?: Yes - POLST Patient has POLST: No PD ED PE NORMAL - Vitals Vital signs reviewed: Yes - General General: Alert and oriented X 3, No acute distress, Well developed/nourished - Derm Derm: No: Normal color, Warm and dry - Extremities Extremities: No: Other (right knee with mild effusion. No redness nor warmth. Cruciate and collateral testing without pain nor laxity. Some pain with Apley type test. No locking nor clicking on passive ROM. ) - Neuro Neuro: No: No motor deficit, No sensory deficit Results - Vitals Vitals: Vital Signs - 24 hr 04/12/21 08:49 Temperature 36.3 C L Heart Rate 101 H Respiratory 16 Rate Blood Pressure 123/79 O2 Saturation 98 Oxygen O2 Source Room air - Rads (name of study) right knee Radiology: Prelim report reviewed (no fractures. Small effusion. ), See rad report PD MEDICAL DECISION MAKING - ED course Complexity details: considered differential (right knee with some effusion and has symptoms c/w meniscal injury. Presume some meniscal injury with fall that then loosened and is more symptomsatic the past week. ), d/w patient Departure - Departure Disposition: 01 Home, Self Care Clinical Impression: Fall from slip, trip, or stumble Qualifiers: Encounter type: initial encounter Qualified Code(s): W01.0XXA - Fall on same level from slipping, tripping and stumbling without subsequent striking against object, initial encounter Knee pain Qualifiers: Chronicity: acute Laterality: right Qualified Code(s): M25.561 - Pain in right knee Condition: Stable Record reviewed to determine appropriate education?: Yes Instructions: ED Meniscal Injury Knee Poss Follow-Up: LUKE BUI MD [Primary Care Provider] - Jaleel Negron MD [Provider Admit Priv/Credential] - Prescriptions: Meloxicam [Mobic] 7.5 mg PO BID 15 Days #30 tablet Comments: Your x-ray appears normal. It does sound likely that you have a meniscal or cartilage injury of the knee. Use the hinged knee brace when up and around for the next week or 2 to help support the knee. Use anti-inflammatories of meloxicam twice daily with food for the next 1 to 2 weeks. To that add Tylenol if needed for pain. Follow-up with orthopedics in about 1 to 2 weeks for recheck to see how well its improving and if any further treatment is needed. Call for an appointment. Discharge Date/Time: 04/12/21 10:51
[2021-04-12] MEDS ORDERED: CHERRY SYRUP 10 ML UDC PO ONE (09:43)
[2021-04-12] MEDS ORDERED: DEXAMETHASONE 10 MG/ML VIAL PO STA (09:43)
[2021-04-12] MEDS ORDERED: HYDROcod/ACETAM 5/325 MG TABLET PO STA (09:43)
[2021-04-12] MEDS ORDERED: MECLIZINE 12.5 MG TABLET PO STA (09:43)
--- NOTE | 2021-04-12 10:25 | XRAY Report ---
PROCEDURE: Knee 3 View RT INDICATIONS: Fall, struck knee, pain for weeks TECHNIQUE: 3 views of the right knee(s) were acquired. COMPARISON: None. FINDINGS: Bones: No fractures or dislocations. Normal patellar height and position. No suspicious bony lesions . Soft tissues: No joint effusion. No suspicious soft tissue calcifications. IMPRESSION: Normal study. Reviewed by: Jamil Alamo MD on 04/12/2021 10:23 AM PDT Approved by: Jamil Alamo MD on 04/12/2021 10:23 AM PDT Station ID: [id number]
== END 2021-04-12 10:51 | disposition home or self-care (01) ==
LOC: ED 08:44
DX: M25.561 Pain in right knee (principal); M25.461 Effusion, right knee; W01.0XXA Fall on same level from slipping, tripping and stumbling without subsequent striking against object, initial encounter; Y92.410 Unspecified street and highway as the place of occurrence of the external cause; I10 Essential (primary) hypertension; F17.200 Nicotine dependence, unspecified, uncomplicated
CPT/HCPCS: 73562; 99283; A9270

== ENCOUNTER 2021-04-12 12:18 | Emergency (ER) | payer MEDICAID | END 2021-04-12 12:33 | disposition left against medical advice (07) | LOC: ED 12:18 | DX: Z53.21 Procedure and treatment not carried out due to patient leaving prior to being seen by health care provider (principal) ==

== ENCOUNTER 2021-08-10 09:16 | Outpatient (CLI) | payer MEDICAID | END 2021-08-10 09:17 | disposition critical access hospital (66) | LOC: EMS 09:16 | DX: R11.0 Nausea (principal) | CPT/HCPCS: A0425; A0429 ==

== ENCOUNTER 2021-08-10 09:34 | Emergency (ER) | payer MEDICAID ==
[2021-08-10 09:46] VITALS: BP 151/93
--- NOTE | 2021-08-10 10:39 | ED Physician Documentation ---
History of Present Illness - Stated complaint Stated Complaint: ABD PX - Chief complaint Chief Complaint: Abd Pain - History obtained from History obtained from: Patient - History of Present Illness Timing: Last night - Additonal information Additional information: 65-year-old female with a prior history of methamphetamine abuse states that she has relapsed and took what she thought was methamphetamine last night and she felt quite odd from this was able to sleep when she woke up she still felt odd and felt lightheaded and dizzy and off-balance. She was worried that she had been poisoned. She has taken a ride to the hospital here and she has been in the emergency department waiting room for an hour and she feels improved. She would like go home. 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 - Present Medications Home Medications: Ambulatory Orders Medication Instructions Recorded Confirmed Meloxicam [Mobic] 7.5 mg PO BID 15 Days #30 tablet 04/12/21 08/10/21 diazePAM [Valium] 5 mg PO BID PRN 08/10/21 08/10/21 - Allergies Allergies/Adverse Reactions: Allergies Allergy/AdvReac Type Severity Reaction Status Date / Time aripiprazole [From Abilify] AdvReac Anxiety Verified 08/10/21 09:47 aspirin AdvReac Unknown Verified 08/10/21 09:47 - Social History Does the pt smoke?: Yes Smoking Status: Current every day smoker Does the pt drink ETOH?: Yes Does the pt have substance abuse?: Yes Substance Use and Type: Meth - Immunizations Immunizations are current?: Yes - POLST Patient has POLST: No PD ED PE NORMAL - Vitals Vital signs reviewed: Yes (hypertensive) - General General: Alert and oriented X 3, Well developed/nourished, Other (65 y/o female appearing older than her stated age. ) - HEENT HEENT: Atraumatic, PERRL, EOMI - Respiratory Respiratory: No respiratory distress - Derm Derm: Normal color, Warm and dry, No rash - Extremities Extremities: No deformity, No edema - Neuro Neuro: volunteer specialist 2-12 intact, No motor deficit, No sensory deficit, Normal speech Eye Opening: Spontaneous Motor: Obeys Commands Verbal: Oriented GCS Score: 15 - Psych Psych: Normal mood, Normal affect Results - Vitals Vitals: Vital Signs - 24 hr 08/10/21 09:43 Temperature 36.7 C Heart Rate 97 Respiratory 16 Rate Blood Pressure 151/93 H O2 Saturation 97 Oxygen O2 Source Room air PD MEDICAL DECISION MAKING - ED course Complexity details: considered differential, d/w patient ED course: 65-year-old female who feels that she has had a bad batch of meth when she awoke this morning she was still having the symptoms as it is come to the emergency department her symptoms are now resolved and she wants to go home. She is discharged from the emergency department. Departure - Departure Disposition: ED Elope Clinical Impression: Methamphetamine abuse Condition: Stable Instructions: Abuse Meth Abuse and Addiction, ED Drug Abuse General Discharge Date/Time: 08/10/21 10:41
== END 2021-08-10 10:41 | disposition left against medical advice (07) ==
LOC: EDUNIT# → ED 09:34
DX: F15.10 Other stimulant abuse, uncomplicated (principal); F17.200 Nicotine dependence, unspecified, uncomplicated
CPT/HCPCS: 99281; 99283

== ENCOUNTER 2022-01-03 04:03 | Emergency (ER) | payer MEDICAID ==
[2022-01-03 04:15] VITALS: BP 115/60
--- NOTE | 2022-01-03 04:28 | ED Physician Documentation ---
History of Present Illness - Stated complaint Stated Complaint: L HIP PX - Chief complaint Chief Complaint: Ext Problem - History obtained from History obtained from: Patient - History of Present Illness Timing: Other (2-3 weeks hip pain, 2-3 days cough) Improved by: rest Worsened by: movement exacerbates hip pain - Additonal information Additional information: chief complaint is left hip pain, patient states "my hip popped out of socket" 2.5 weeks ago and she "had to pop it back in". she says she has had hip pain since then. when I ask why she presents to ER at this time she says "because I knew it wouldn't be busy". She also c/o 2-3 days of productive cough. Review of Systems Constitutional: denies: Fever Cardiac: reports: Reviewed and negative Respiratory: reports: Cough. denies: Dyspnea, Hemoptysis, Wheezing GI: reports: Reviewed and negative Musculoskeletal: reports: Joint pain. 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 - Present Medications Home Medications: Ambulatory Orders Medication Instructions Recorded Confirmed Meloxicam [Mobic] 7.5 mg PO BID 15 Days #30 tablet 04/12/21 08/10/21 diazePAM [Valium] 5 mg PO BID PRN 08/10/21 08/10/21 - Allergies Allergies/Adverse Reactions: Allergies Allergy/AdvReac Type Severity Reaction Status Date / Time aripiprazole [From Abilify] AdvReac Anxiety Verified 01/03/22 04:10 aspirin AdvReac Unknown Verified 01/03/22 04:10 - Social History Does the pt smoke?: Yes Smoking Status: Current every day smoker Does the pt drink ETOH?: Yes Does the pt have substance abuse?: Yes Substance Use and Type: Marijuana, Meth - Immunizations Immunizations are current?: Yes - POLST Patient has POLST: No PD ED PE NORMAL - Vitals Vital signs reviewed: Yes - General General: Alert and oriented X 3, No acute distress, Well developed/nourished - Cardiac Cardiac: RRR, No murmur - Respiratory Respiratory: No respiratory distress, Clear bilaterally - Derm Derm: Normal color, Warm and dry, No rash - Extremities Extremities: No deformity, No tenderness to palpate, Normal ROM s pain, No edema Results - Vitals Vitals: Oxygen O2 Source Room air - Rads (name of study) left hip xrays with AP pelvis Radiology: Prelim report reviewed, See rad report chest xray Radiology: Prelim report reviewed, See rad report PD MEDICAL DECISION MAKING - ED course Complexity details: reviewed old records, reviewed results, re-evaluated patient, considered differential, d/w patient ED course: unremarkable exam and no concerning finding on chest xray, left hip/pelvis xrays. Results d/w patient, advised to follow up with primary care provider for reevaluation for ongoing/chronic problems. Return precautions discussed. Departure - Departure Disposition: 01 Home, Self Care Clinical Impression: Bronchitis, Hip pain, left Condition: Good Instructions: ED Joint Pain, ED Upper Resp Infec No Abx Tx Discharge Date/Time: 01/03/22 07:16
--- NOTE | 2022-01-03 08:05 | XRAY Report ---
PROCEDURE: Hip w/Pelvis 2-3V LT INDICATIONS: left hip pain TECHNIQUE: AP pelvis with lateral view(s) of the left hip(s). COMPARISON: None. FINDINGS: Bones: No fractures or dislocations. Pelvic ring appears intact. No suspicious bony lesions. Soft tissues: The visualized bowel gas pattern is normal. No suspicious soft tissue calcifications. IMPRESSION: Normal pelvis and left hip. Findings above correspond with preliminary findings by [facility]. Reviewed by: Rashaad Smiley on 01/03/2022 7:03 AM [facility] Approved by: Rashaad Smiley on 01/03/2022 7:03 AM [facility] Station ID: [id number]
--- NOTE | 2022-01-03 08:06 | XRAY Report ---
PROCEDURE: Chest 2 View X-Ray INDICATIONS: cough, left upper rhonchi TECHNIQUE: 2 view(s) of the chest. COMPARISON: None. FINDINGS: Surgical changes and devices: None. Lungs and pleura: No pleural effusions or pneumothorax. Lungs are clear. Mediastinum: Mediastinal contours are normal. Heart size is normal. Bones and chest wall: No suspicious bony abnormalities. Soft tissues appear unremarkable. IMPRESSION: No acute cardiopulmonary abnormality. Findings above correspond with preliminary findings by [facility]. Reviewed by: Rashaad Smiley on 01/03/2022 7:05 AM [facility] Approved by: Rashaad Smiley on 01/03/2022 7:05 AM [facility] Station ID: [id number]
== END 2022-01-03 07:16 | disposition home or self-care (01) ==
LOC: ED 04:03
DX: J40 Bronchitis, not specified as acute or chronic (principal); M25.552 Pain in left hip; F17.200 Nicotine dependence, unspecified, uncomplicated
CPT/HCPCS: 99282; 99284

== ENCOUNTER 2022-08-29 14:59 | Emergency (ER) | payer MEDICAID ==
[2022-08-29 16:40] VITALS: BP 144/111
--- NOTE | 2022-08-29 17:04 | ED Physician Documentation ---
History of Present Illness - Stated complaint Stated Complaint: ADB PX - Chief complaint Chief Complaint: General - History obtained from History obtained from: Patient - Additonal information Additional information: Patient presenting for evaluation of concerns for Parasites. Patient states that she has a solid in her car and has found a worm in it. She states that she has been eating at the same place for the past month. She says that her abdomen has been cramping for the past several days and she finally put it together that it is caused by a worm that she recently found in a salad. She states that 4 to 5 years ago she had an episode of spitting out a warm and took it to [facility] and told that she had Giardia And was given a medication for that made it feel better. Patient denies diarrhea. Patient reports last using meth a few days ago and feels that she is coming off of it.Patient denies suicidal or homicidal thoughts. Also reports a history of schizoaffective disorder. 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 - Present Medications Home Medications: Ambulatory Orders Medication Instructions Recorded Confirmed Meloxicam [Mobic] 7.5 mg PO BID 15 Days #30 tablet 04/12/21 08/10/21 diazePAM [Valium] 5 mg PO BID PRN 08/10/21 08/10/21 - Allergies Allergies/Adverse Reactions: Allergies Allergy/AdvReac Type Severity Reaction Status Date / Time aripiprazole [From Abilify] AdvReac Anxiety Verified 01/03/22 04:10 aspirin AdvReac Unknown Verified 01/03/22 04:10 - Social History Does the pt smoke?: Yes Smoking Status: Current every day smoker Does the pt drink ETOH?: Yes Does the pt have substance abuse?: Yes - Immunizations Immunizations are current?: Yes - POLST Patient has POLST: No PD ED PE NORMAL - General General: Alert and oriented X 3, No acute distress, Well developed/nourished - HEENT HEENT: Atraumatic, Pharynx benign - Neck Neck: Supple, no meningeal sign - Cardiac Cardiac: RRR - Respiratory Respiratory: No respiratory distress, Clear bilaterally - Abdomen Abdomen: Soft, Non tender - Derm Derm: Warm and dry - Extremities Extremities: No deformity - Psych Psych: Other (Loud, pressured with her speech, argumentative) Results - Vitals Vitals: Vital Signs - 24 hr 08/29/22 08/29/22 15:08 16:36 Temperature 36.5 C Heart Rate 122 H 109 H Respiratory 18 16 Rate Blood Pressure 156/94 H 144/111 H O2 Saturation 100 100 Oxygen O2 Source Room air PD Medical Decision Making - ED course ED course: Patient presenting for evaluation of concerns for parasite or giardia infection. She has recently used meth. She is tachycardic. Her speech is pressured and she is loud and argumentative.Patient reports recently feeling some abdominal discomforts. Her abdominal exam here is benign. She denies vomiting or diarrhea.Discussed options for evaluation Including stool sample and labs and the patient declines. Patient states that she just wants to leave. Patient denies being suicidal or homicidal.Patient does not want psychiatric help for her substance abuse. I do not think she appears gravely disabled or qualifies for involuntary psychiatric admission. Departure - Departure Disposition: 01 Home, Self Care Clinical Impression: Methamphetamine abuse Condition: Stable Instructions: ED Drug Abuse General Comments: I would encourage follow-up with your primary care doctor regarding your symptoms and I would recommend avoiding methamphetamine use. Please return to the ER at any time if you have any concerns. Discharge Date/Time: 08/29/22 16:50
== END 2022-08-29 16:50 | disposition home or self-care (01) ==
LOC: ED 14:59
DX: F15.10 Other stimulant abuse, uncomplicated (principal); I10 Essential (primary) hypertension; F17.200 Nicotine dependence, unspecified, uncomplicated
CPT/HCPCS: 99281; 99283

== ENCOUNTER 2022-11-05 08:00 | Outpatient (CLI) | payer MEDICAID ==
[2022-11-05 20:06] LABS: BASOPHILS # (AUTO) 0.1 10^3/uL (0.0-0.1); BASOPHILS % (AUTO) 1.1 %; EOSINOPHILS # (AUTO) 0.1 10^3/uL (0.0-0.7); HCT - HEMATOCRIT 37.6 % (37.0-47.0); HGB - HEMOGLOBIN 11.4 g/dL (12.0-16.0); LYMPHOCYTES # (AUTO) 1.6 10^3/uL (1.5-3.5); LYMPHOCYTES % (AUTO) 22.3 %; MEAN CORPUSCULAR HEMOGLOBIN 27.3 pg (27.0-31.0); MEAN CORPUSCULAR HGB CONC 30.3 g/dL (32.0-36.0); MEAN PLATELET VOLUME 10.5 fL (7.9-10.8); MONOCYTES # (AUTO) 0.9 10^3/uL (0.0-1.0); MONOCYTES % (AUTO) 12.2 %; NEUTROPHILS # (AUTO) 4.7 10^3/uL (1.5-6.6); NEUTROPHILS % (AUTO) 63.1 %; PLT - PLATELET COUNT 334 10^3/uL (130-450); RED BLOOD COUNT 4.18 10^6/uL (4.20-5.40); RED CELL DISTRIBUTION WIDTH 13.4 % (12.0-15.0); WHITE BLOOD COUNT 7.4 x10^3/uL (4.8-10.8)
[2022-11-05 20:27] LABS: ALBUMIN 3.4 g/dL (3.2-5.5); ALBUMIN/GLOBULIN RATIO 1.1 (1.0-2.2); BILIRUBIN,TOTAL 0.8 mg/dL (0.2-1.0); CALCIUM 8.6 mg/dL (8.5-10.3); CREATININE 0.9 mg/dL (0.4-1.0); POTASSIUM 3.6 mmol/L (3.5-5.0); TOTAL PROTEIN 6.6 g/dL (6.7-8.2)
[2022-11-05 20:37] LABS: THYROID STIMULATING HORMONE 1.33 uIU/mL (0.34-5.60)
== END 2022-11-05 23:59 | disposition home or self-care (01) ==
LOC: LAB.N 08:00
PROVIDERS: ATTEND Registered Nurse
DX: R21 Rash and other nonspecific skin eruption (principal)
CPT/HCPCS: 36415; 80053; 84443; 85025

== ENCOUNTER 2023-04-22 19:28 | Outpatient (CLI) | payer MEDICAID | END 2023-04-22 19:29 | disposition critical access hospital (66) | LOC: EMS 19:28 | DX: R06.02 Shortness of breath (principal); I48.91 Unspecified atrial fibrillation; R46.89 Other symptoms and signs involving appearance and behavior | CPT/HCPCS: A0425; A0427; A0999 ==

== ENCOUNTER 2023-04-22 19:47 | Emergency (ER) | payer MEDICARE, MEDICAID ==
--- NOTE | 2023-04-22 20:34 | ED Physician Documentation ---
History of Present Illness - Stated complaint Stated Complaint: WEAKNESS/DEHYDRATION - Chief complaint Chief Complaint: General - History obtained from History obtained from: Patient, EMS - History of Present Illness Timing: Today Pain level max: 0 Pain level now: 0 - Additonal information Additional information: Patient is 87-year-old female who presents to the emergency department stating she is concerned about pulmonary edema. She states that she has a history of same and was hospitalized in [place] in October. She states she has been off of her diuretics for the past 2 weeks. No chest pain. No shortness of breath. No wheezing. No leg swelling. Nothing makes it better or worse. No nausea or vomiting. She does use methamphetamines. No fevers. No chills. No cough. 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 - Present Medications Home Medications: Ambulatory Orders Medication Instructions Recorded Confirmed Meloxicam [Mobic] 7.5 mg PO BID 15 Days #30 tablet 04/12/21 08/10/21 diazePAM [Valium] 5 mg PO BID PRN 08/10/21 08/10/21 - Allergies Allergies/Adverse Reactions: Allergies Allergy/AdvReac Type Severity Reaction Status Date / Time aripiprazole [From Abilify] AdvReac Anxiety Verified 04/22/23 19:52 aspirin AdvReac Unknown Verified 04/22/23 19:52 - Social History Does the pt smoke?: Yes Smoking Status: Current every day smoker Does the pt drink ETOH?: Yes Does the pt have substance abuse?: Yes - Immunizations Immunizations are current?: Yes - POLST Patient has POLST: No PD ED PE NORMAL - Vitals Vital signs reviewed: Yes - General General: Alert and oriented X 3, No acute distress - HEENT HEENT: PERRL, Moist mucous membranes - Neck Neck: Supple, no meningeal sign - Cardiac Cardiac: Other (Tachycardic, irregular) - Respiratory Respiratory: No respiratory distress, Clear bilaterally - Abdomen Abdomen: Soft, Non tender, Non distended - Derm Derm: Warm and dry - Extremities Extremities: No edema, No calf tenderness / cord - Neuro Neuro: Alert and oriented X 3 - Psych Psych: Normal mood, Normal affect Results - Vitals Vitals: Vital Signs - 24 hr 04/22/23 04/22/23 04/22/23 19:52 19:54 21:54 Temperature 36.5 C 36.5 C Heart Rate 110 H 110 H 120 H Respiratory 16 16 18 Rate Blood Pressure 115/80 118/80 118/90 H O2 Saturation 98 98 99 Oxygen O2 Source Room air - Labs Labs: Laboratory Tests 04/22/23 04/22/23 04/22/23 20:33 20:33 20:33 WBC 6.5 RBC 4.44 Hgb 11.9 L Hct 38.5 MCV 86.7 MCH 26.8 L MCHC 30.9 L RDW 15.1 H Plt Count 309 MPV 9.9 Neut # (Auto) 4.4 Lymph # (Auto) 1.4 L [place] # (Auto) 0.5 Eos # (Auto) 0.1 Baso # (Auto) 0.1 Absolute Nucleated RBC 0.00 Nucleated RBC % 0.0 Sodium 128 L Potassium 3.5 Chloride 91 L Carbon Dioxide 25 Anion Gap 12.0 BUN 31 H Creatinine 1.1 Estimated GFR (MDRD) 50 L Glucose 102 Calcium 8.7 Total Bilirubin 2.8 H AST 56 H ALT 166 H Alkaline Phosphatase 91 Troponin I High Sens B-Natriuretic Peptide 1707 H Total Protein 6.3 L Albumin 3.6 Globulin 2.7 Albumin/Globulin Ratio 1.3 Lipase 54 Urine Color Urine Clarity Urine pH Ur Specific [place] Urine Protein Urine Glucose (UA) Urine Ketones Urine Occult Blood Urine Nitrite Urine Bilirubin Urine Urobilinogen Ur Leukocyte Esterase Ur Microscopic Review Urine Culture Comments Urine Opiates Screen Ur Oxycodone Screen Urine Methadone Screen Ur Propoxyphene Screen Ur Barbiturates Screen Ur Tricyclics Screen Ur Phencyclidine Scrn Ur Amphetamine Screen U Methamphetamines Scrn U Benzodiazepines Scrn Urine Cocaine Screen U Cannabinoids Screen 04/22/23 04/22/23 20:33 21:38 WBC RBC Hgb Hct MCV MCH MCHC RDW Plt Count MPV Neut # (Auto) Lymph # (Auto) [place] # (Auto) Eos # (Auto) Baso # (Auto) Absolute Nucleated RBC Nucleated RBC % Sodium Potassium Chloride Carbon Dioxide Anion Gap BUN Creatinine Estimated GFR (MDRD) Glucose Calcium Total Bilirubin AST ALT Alkaline Phosphatase Troponin I High Sens 43.2 H* B-Natriuretic Peptide Total Protein Albumin Globulin Albumin/Globulin Ratio Lipase Urine Color DARK YELLOW Urine Clarity CLEAR Urine pH 5.5 Ur Specific [place] >=1.030 H Urine Protein TRACE Urine Glucose (UA) NEGATIVE Urine Ketones NEGATIVE Urine Occult Blood NEGATIVE Urine Nitrite NEGATIVE Urine Bilirubin SMALL H Urine Urobilinogen 1 (NORMAL) Ur Leukocyte Esterase NEGATIVE Ur Microscopic Review NOT INDICATED Urine Culture Comments NOT INDICATED Urine Opiates Screen NEGATIVE Ur Oxycodone Screen NEGATIVE Urine Methadone Screen NEGATIVE Ur Propoxyphene Screen NEGATIVE Ur Barbiturates Screen NEGATIVE Ur Tricyclics Screen NEGATIVE Ur Phencyclidine Scrn NEGATIVE Ur Amphetamine Screen POSITIVE H U Methamphetamines Scrn POSITIVE H U Benzodiazepines Scrn NEGATIVE Urine Cocaine Screen NEGATIVE U Cannabinoids Screen POSITIVE H - Rads (name of study) cxr Relevant Findings:: Final report received, See rad report (Cardiomegaly with mild pulmonary edema) PD Medical Decision Making - ED course Complexity details: reviewed results, re-evaluated patient, considered differential, d/w patient ED course: 67-year-old female with a history of methamphetamine abuse has been off of her diuretics for approximately 2 weeks. Appears to have cardiomegaly and mild pulmonary edema here. Elevated BNP. No chest pain. No shortness of breath. Records were obtained from [facility]. Her last echocardiogram showed an EF of 15 to 20% with severe cardiomyopathy and global hypokinesia. She was given Lasix here. Has been off of her diuretics for 2 weeks. She was also tachycardic and given a dose of metoprolol. High sensory troponin is minimally elevated, I expect this level from her cardiomyopathy. Patient still uses methamphetamines daily. Patient will be signed out to Dr. Otero. The patient will need to be rate controlled and road tested to ensure she is not hypoxic with ambulation. The patient has diuretics at home, she needs to resume these as previously prescribed as well as her other medications. Departure - Departure Clinical Impression: Cardiac LV ejection fraction 10-20%, Methamphetamine abuse, Tachycardia Congestive heart failure (CHF) Qualifiers: Heart failure type: unspecified Heart failure chronicity: chronic Qualified Code(s): I50.9 - Heart failure, unspecified Pulmonary edema Qualifiers: Chronicity: chronic Qualified Code(s): J81.1 - Chronic pulmonary edema Condition: Stable Forms: PCP List
[2023-04-22 20:48] LABS: BASOPHILS # (AUTO) 0.1 10^3/uL (0.0-0.1); BASOPHILS % (AUTO) 1.1 %; EOSINOPHILS # (AUTO) 0.1 10^3/uL (0.0-0.7); EOSINOPHILS % (AUTO) 0.9 %; HCT - HEMATOCRIT 38.5 % (37.0-47.0); HGB - HEMOGLOBIN 11.9 g/dL (12.0-16.0); LYMPHOCYTES # (AUTO) 1.4 10^3/uL (1.5-3.5); MEAN CORPUSCULAR HEMOGLOBIN 26.8 pg (27.0-31.0); MEAN CORPUSCULAR HGB CONC 30.9 g/dL (32.0-36.0); MEAN CORPUSCULAR VOLUME 86.7 fL (81.0-99.0); MEAN PLATELET VOLUME 9.9 fL (7.9-10.8); MONOCYTES # (AUTO) 0.5 10^3/uL (0.0-1.0); MONOCYTES % (AUTO) 8.3 %; NEUTROPHILS # (AUTO) 4.4 10^3/uL (1.5-6.6); NEUTROPHILS % (AUTO) 68.5 %; PLT - PLATELET COUNT 309 10^3/uL (130-450); RED BLOOD COUNT 4.44 10^6/uL (4.20-5.40); RED CELL DISTRIBUTION WIDTH 15.1 % (12.0-15.0); WHITE BLOOD COUNT 6.5 x10^3/uL (4.8-10.8)
--- NOTE | 2023-04-22 20:54 | XRAY Report ---
PROCEDURE: Chest 1 View X-Ray INDICATIONS: dyspnea TECHNIQUE: One view of the chest was acquired. COMPARISON: Two-view chest 01/03/2022. FINDINGS: Surgical changes and devices: None. Lungs and pleura: No pleural effusions or pneumothorax. Lungs are mildly edematous. Mediastinum: Mediastinal contours appear normal. Heart size is globally enlarged to a moderate or m oderately severe degree, not present in December of last year. Bones and chest wall: No suspicious bony lesions. Overlying soft tissues appear unremarkable. IMPRESSION: New finding of significant cardiomegaly and mild pulmonary edema in a patient who in December of last yea r had a normal-appearing heart. Cardiomyopathy may be present given the global enlargement of the hea rt noted. Reviewed by: Jesús Boston MD on 04/22/2023 8:53 PM PDT Approved by: Jesús Boston MD on 04/22/2023 8:53 PM PDT Station ID: [id number]
[2023-04-22 21:08] LABS: ALBUMIN 3.6 g/dL (3.2-5.5); ALBUMIN/GLOBULIN RATIO 1.3 (1.0-2.2); BILIRUBIN,TOTAL 2.8 mg/dL (0.2-1.0); CALCIUM 8.7 mg/dL (8.5-10.3); CREATININE 1.1 mg/dL (0.6-1.3); POTASSIUM 3.5 mmol/L (3.5-4.5); TOTAL PROTEIN 6.3 g/dL (6.4-8.9)
[2023-04-22] MEDS ORDERED: FUROSEMIDE 20 MG TABLET PO STA (21:17)
[2023-04-22 21:43] LABS: MUDS CUTOFF CONCENTRATIONS CUTOFF CONC BELOW:
[2023-04-22 21:46] LABS: GLUCOSE, URINE (UA) NEGATIVE (NEGATIVE); KETONES,URINE (UA) NEGATIVE (NEGATIVE); LEUKOCYTE ESTERASE, URINE NEGATIVE (NEGATIVE); NITRITE,URINE NEGATIVE (NEGATIVE); OCCULT BLOOD,URINE NEGATIVE (NEGATIVE); PH,URINE 5.5 PH (5.0-7.5); PROTEIN,URINE TRACE mg/dL (NEGATIVE); UROBILINOGEN,URINE 1 (NORMAL) E.U./dL (NORMAL)
[2023-04-22 21:49] LABS: BILIRUBIN,URINE SMALL (NEGATIVE); CLARITY,URINE CLEAR (CLEAR); ICTOTEST,URINE POSITIVE
[2023-04-22 21:58] LABS: BARBITURATE SCREEN,UR NEGATIVE (NEGATIVE); BENZODIAZEPINES SCREEN, URINE NEGATIVE (NEGATIVE); COCAINE SCREEN URINE NEGATIVE (NEGATIVE); METHADONE SCREEN, URINE NEGATIVE (NEGATIVE); OPIATE SCREEN, URINE NEGATIVE (NEGATIVE); OXYCODONE SCREEN, URINE NEGATIVE (NEGATIVE); PROPOXYPHENE SCREEN, URINE NEGATIVE (NEGATIVE); TRICYCLIC ANTIDEPRESSANT,URINE NEGATIVE (NEGATIVE)
[2023-04-22 22:32] LABS: AMPHETAMINE SCREEN,URINE POSITIVE (NEGATIVE); METHAMPHETAMINES SCREEN, URINE POSITIVE (NEGATIVE); THC CANNABINOID SCREEN, URINE POSITIVE (NEGATIVE)
[2023-04-22] MEDS ORDERED: METOPROLOL TARTRATE 50 MG TABLET PO STA (22:41)
[2023-04-22] MEDS ORDERED: METOPROLOL 5 MG/5 ML VIAL IVP STA (23:13)
[2023-04-23] MEDS ORDERED: iohexoL-300 100 ML VIAL IVP ONE (04:26)
[2023-04-23] MEDS ORDERED: diltiaZEM INJ 5 MG/ML VIAL IVP STA (05:03)
[2023-04-23 05:36] VITALS: BP 91/62
--- NOTE | 2023-04-23 05:55 | ED Physician Documentation ---
ED Addendum - Addendum Addendum: 04/23/23 05:54 Patient observed in the emergency department for several hours. Heart rate gradually declined with time and metoprolol, however maintaining approximately 120 bpm. Patient will sleep comfortably in ED bed, however when awoken will complain of shortness of breath intermittently. CT angio negative for pulmonary embolism. Patient does appear to have right-sided heart failure with hepatic congestion and intra-abdominal ascites. She has known heart failure with reduce d ejection fraction with EF 15%. Case discussed with on-call remote sensing engineer Dr. Mroeno, who stated that patient's elevated heart rate would reduce over the next several days with the cessation of amphetamines as well as compliance with beta-blockers. Patient was counseled on the importance of amphetamine cessation, compliance with beta-blockers, compliance with Lasix.
[2023-04-23 06:12] VITALS: O2SAT 98
--- NOTE | 2023-04-23 08:16 | CT Report ---
PROCEDURE: ANGIO CHEST W/WO INDICATIONS: persistent tachycardia, dyspnea CONTRAST: 100 ML OMNI 300 TECHNIQUE: After the administration of intravenous contrast, 2 mm axial images were acquired from the pulmonary apices to the posterior costophrenic angles during the arterial phase. In addition, 1 mm lung kernel and 5 mm soft tissue kernel reconstructions were performed. 3-dimensional coronal oblique maximum int ensity projection (MIP) reformats, 8 mm axial MIP, and 5 mm coronal and sagittal MPR reformats were t hen performed through the thorax. For radiation dose reduction, the following was used: automated exp osure control, adjustment of mA and/or kV according to patient size. COMPARISON: Chest radiograph dated 04/22/2023 FINDINGS: Image quality: Excellent. Large vessels: No filling defects within the opacified pulmonary arteries, accounting for motion and contrast timing. No evidence of acute aortic syndrome or aortic aneurysm. Lungs and pleura: No consolidation. No pleural effusions. No pneumothorax. No suspicious pulmonary n odules which require follow up. Mediastinum: Heart size is enlarged. No pericardial effusion. No large vessel abnormality. No mediast inal adenopathy by size criteria. Chest wall and lower neck: Thyroid is mildly enlarged with subtle hypodensity involving left lobe of thyroid gland. No axillary or supraclavicular adenopathy by size. Bones: No aggressive osseous abnormality. Upper Abdomen: Ascites fluid is seen in upper abdomen. Enlargement of the hepatic veins are seen whic h can be seen associated with right heart failure. IMPRESSION: 1. No pulmonary embolus. 2. Bilateral lungs are clear. 3. Mildly enlarged thyroid gland with suggestion of hypodense nodule in left lobe of thyroid gland jalloh ggests outpatient thyroid ultrasound for follow-up. 4. Enlargement of the hepatic veins concerning for right heart failure. Small to moderate amount of a scites fluid. Findings are concordant with preliminary interpretation provided by [facility]. Reviewed by: Federico Lopez MD on 04/23/2023 8:14 AM PDT Approved by: Federico Lopez MD on 04/23/2023 8:14 AM PDT Station ID: [id number]
== END 2023-04-23 06:25 | disposition home or self-care (01) ==
LOC: EDUNIT# → ED 19:47
DX: I11.0 Hypertensive heart disease with heart failure (principal); I50.9 Heart failure, unspecified; F15.10 Other stimulant abuse, uncomplicated; F17.200 Nicotine dependence, unspecified, uncomplicated; R06.02 Shortness of breath
CPT/HCPCS: 36415; 71045; 71275; 80053; 80306; 81003; 83690; 83880; 84484; 85025; 93005; 96374; 99284; A9270; Q9967; 81001; 87086

== ENCOUNTER 2023-04-24 16:30 | Outpatient (CLI) | payer MEDICARE, MEDICAID | END 2023-04-24 23:59 | disposition short-term general hospital (02) | LOC: EMS 16:30 | DX: R18.8 Other ascites (principal) | CPT/HCPCS: A0425; A0429; A0888 ==

== ENCOUNTER 2023-05-05 19:23 | Outpatient (CLI) | payer MEDICARE, MEDICAID | END 2023-05-05 19:24 | disposition short-term general hospital (02) | LOC: EMS 19:23 | DX: R06.02 Shortness of breath (principal); I48.91 Unspecified atrial fibrillation; R07.1 Chest pain on breathing; R60.0 Localized edema | CPT/HCPCS: A0425; A0429 ==

== ENCOUNTER 2023-05-24 03:55 | Outpatient (CLI) | payer MEDICARE, MEDICAID | END 2023-05-24 03:56 | disposition critical access hospital (66) | LOC: EMS 03:55 | DX: R60.0 Localized edema (principal); R23.8 Other skin changes; R06.02 Shortness of breath; R00.0 Tachycardia, unspecified | CPT/HCPCS: A0425; A0429 ==

== ENCOUNTER 2023-05-24 04:12 | Emergency (ER) | payer MEDICARE, MEDICAID ==
[2023-05-24 05:29] LABS: BASOPHILS # (AUTO) 0.1 10^3/uL (0.0-0.1); BASOPHILS % (AUTO) 0.6 %; EOSINOPHILS % (AUTO) 0.1 %; HCT - HEMATOCRIT 38.8 % (37.0-47.0); LYMPHOCYTES # (AUTO) 1.3 10^3/uL (1.5-3.5); LYMPHOCYTES % (AUTO) 14.1 %; MEAN CORPUSCULAR HEMOGLOBIN 25.9 pg (27.0-31.0); MEAN CORPUSCULAR HGB CONC 30.9 g/dL (32.0-36.0); MEAN CORPUSCULAR VOLUME 83.8 fL (81.0-99.0); MEAN PLATELET VOLUME 9.5 fL (7.9-10.8); MONOCYTES # (AUTO) 0.9 10^3/uL (0.0-1.0); MONOCYTES % (AUTO) 9.6 %; NEUTROPHILS % (AUTO) 75.3 %; PLT - PLATELET COUNT 294 10^3/uL (130-450); RED BLOOD COUNT 4.63 10^6/uL (4.20-5.40); RED CELL DISTRIBUTION WIDTH 18.8 % (12.0-15.0); WHITE BLOOD COUNT 9.3 x10^3/uL (4.8-10.8)
[2023-05-24] MEDS ORDERED: METOPROLOL 5 MG/5 ML VIAL IVP STA (05:39)
[2023-05-24 06:05] LABS: ALBUMIN 3.5 g/dL (3.2-5.5); ALBUMIN/GLOBULIN RATIO 1.5 (1.0-2.2); BILIRUBIN,TOTAL 2.1 mg/dL (0.2-1.0); CALCIUM 9.1 mg/dL (8.5-10.3); CREATININE 1.1 mg/dL (0.6-1.3); POTASSIUM 4.3 mmol/L (3.5-4.5); TOTAL PROTEIN 5.8 g/dL (6.4-8.9)
[2023-05-24] MEDS ORDERED: FUROSEMIDE 40 MG/4 ML VIAL IVP STA (06:30)
[2023-05-24] MEDS ORDERED: METOPROLOL TARTRATE 25 MG TABLET PO STA (06:32)
--- NOTE | 2023-05-24 06:54 | ED Physician Documentation ---
History of Present Illness - Stated complaint Stated Complaint: BLE EDEMA - Chief complaint Chief Complaint: Cardiac - History obtained from History obtained from: Patient - Additonal information Additional information: Patient is a 67-year-old female with a history of cardiomyopathy, EF of 15 to 20% per prior ED note presenting for evaluation of ongoing bilateral lower extremity swelling and feeling short of air. Patient has been to [facility] recently. She is a very poor historian and is unable to tell me exactly what was done for her at [facility] and what medications were adjusted. She is unclear on what medication she has been taking but does feel that she has been taking her diuretic daily although she states she has not been urinating very much. In review of her recent prescriptions filled it also appears that she was started on Eliquis and she does have a prescription for Eliquis in her purse. She is unsure why she was started on Eliquis. I asked if she has a history of a PE or DVT and she states she does not. I also asked if she has a history of atrial fibrillation and she states she does not. She states that she thinks she is on the blood thinner for fluid in her lungs and I explained that that would not be the reason to put her on a blood thinner. She denies chest pain. She reports noticing weeping from her legs tonight which is what prompted her to call 911. Patient also has a history of methamphetamine abuse. She is unsure of when she last used but believes it was a few days ago. Review of Systems Constitutional: denies: Fever Cardiac: denies: Chest pain / pressure Respiratory: reports: Dyspnea GI: denies: Abdominal Pain, Vomiting Musculoskeletal: reports: Extremity swelling PD PAST MEDICAL HISTORY - Past Medical History Cardiovascular: Hypertension, High cholesterol Respiratory: None Neuro: CVA, TIA GI: None HEENT: None Psych: Depression, Anxiety, Post traumatic stress disorder Derm: None - Past Surgical History Past Surgical History: Yes /[employer]: Tubal ligation - Present Medications Home Medications: Ambulatory Orders Medication Instructions Recorded Confirmed Albuterol Sulfate [Proair 2 puffs IH Q4HR PRN 04/23/23 04/23/23 Digihaler] Furosemide [Lasix] 20 mg PO DAILY 04/23/23 04/23/23 Gabapentin [Neurontin] 1 cap PO QPM 04/23/23 04/23/23 Lisinopril [Zestril] 2.5 mg PO DAILY 04/23/23 04/23/23 Metoprolol Succinate [Toprol Xl] 25 mg PO DAILY 04/23/23 04/23/23 OLANZapine [Zyprexa] 2.5 mg PO QPM 04/23/23 04/23/23 Spironolactone [Aldactone] 1 tab PO DAILY 04/23/23 04/23/23 - Allergies Allergies/Adverse Reactions: Allergies Allergy/AdvReac Type Severity Reaction Status Date / Time aripiprazole [From Abilify] AdvReac Anxiety Verified 05/24/23 04:56 aspirin AdvReac Unknown Verified 05/24/23 04:56 buspirone [From BuSpar] AdvReac Nausea Verified 05/24/23 04:56 - Social History Does the pt smoke?: Yes Smoking Status: Current every day smoker Does the pt drink ETOH?: Yes Does the pt have substance abuse?: Yes Substance Use and Type: Meth - Immunizations Immunizations are current?: Yes - POLST Patient has POLST: No PD ED PE NORMAL - General General: Alert and oriented X 3, No acute distress - HEENT HEENT: Atraumatic - Neck Neck: Supple, no meningeal sign - Cardiac Cardiac: Strong equal pulses, Other (Tachycardic, regular rhythm) - Respiratory Respiratory: No respiratory distress, Clear bilaterally - Abdomen Abdomen: Soft, Non tender, Non distended - Derm Derm: Warm and dry - Extremities Extremities: Other (Bilateral lower extremity edema) - Neuro Neuro: Normal speech Results - Vitals Vitals: Vital Signs - 24 hr 05/24/23 05/24/23 05/24/23 04:26 06:05 06:17 Temperature 37 C Heart Rate 137 H 133 H 126 H Respiratory 19 25 H 21 Rate Blood Pressure 115/82 H 85/68 L 76/48 L O2 Saturation 99 92 97 05/24/23 05/24/23 05/24/23 06:23 06:40 07:00 Temperature Heart Rate 124 H 123 H 122 H Respiratory 21 27 H 15 Rate Blood Pressure 93/51 L 86/69 L 96/79 O2 Saturation 100 93 94 05/24/23 05/24/23 05/24/23 07:15 08:09 09:01 Temperature 36.9 C Heart Rate 124 H 126 H 120 H Respiratory 26 H 22 22 Rate Blood Pressure 95/83 H 95/67 95/68 O2 Saturation 95 98 99 05/24/23 09:18 Temperature 37 C Heart Rate 83 Respiratory 20 Rate Blood Pressure 128/74 O2 Saturation 100 Oxygen O2 Source Room air - EKG (time done) 0441 EKG releavant findings:: EKG personally interpreted by author of this note. Relevant findings are: Rate 136, atrial flutter, no STEMI, no significant change when compared with EKG from 1 month ago - Labs Labs: Laboratory Tests 05/24/23 05/24/23 05/24/23 05:20 05:20 05:20 WBC 9.3 RBC 4.63 Hgb 12.0 Hct 38.8 MCV 83.8 MCH 25.9 L MCHC 30.9 L RDW 18.8 H Plt Count 294 MPV 9.5 Neut # (Auto) 7.0 H Lymph # (Auto) 1.3 L [place] # (Auto) 0.9 Eos # (Auto) 0.0 Baso # (Auto) 0.1 Absolute Nucleated RBC 0.00 Nucleated RBC % 0.0 Sodium 129 L Potassium 4.3 Chloride 93 L Carbon Dioxide 25 Anion Gap 11.0 BUN 31 H Creatinine 1.1 Estimated GFR (MDRD) 50 L Glucose 122 H Calcium 9.1 Total Bilirubin 2.1 H AST 22 ALT 28 Alkaline Phosphatase 70 Troponin I High Sens B-Natriuretic Peptide 2204 H Total Protein 5.8 L Albumin 3.5 Globulin 2.3 Albumin/Globulin Ratio 1.5 05/24/23 05:20 WBC RBC Hgb Hct MCV MCH MCHC RDW Plt Count MPV Neut # (Auto) Lymph # (Auto) [place] # (Auto) Eos # (Auto) Baso # (Auto) Absolute Nucleated RBC Nucleated RBC % Sodium Potassium Chloride Carbon Dioxide Anion Gap BUN Creatinine Estimated GFR (MDRD) Glucose Calcium Total Bilirubin AST ALT Alkaline Phosphatase Troponin I High Sens 39.6 H* B-Natriuretic Peptide Total Protein Albumin Globulin Albumin/Globulin Ratio PD Medical Decision Making - ED course Complexity details: reviewed results, re-evaluated patient, d/w patient ED course: Patient is a 67 yo F with history of meth abuse, cardiomyopathy, peripheral edema, atrial fib presenting with increased lower extremity swelling and feeling SOA. Pt tachycardic. EKG looks like atrial flutter. No CP. troponin slightly elevated which is likely related to demand from tachycardia and known cardiomyopathy. Symptoms ongoing for several days so do not think this represen ts an OK. BNP elevated. Chest XR with findings of congestion. Pt given IV metoprolol with some improvement in HR but also lowered BP. Pt still tachycardic. She is on eliquis and reports taking it. Pt to be given PO metoprolol and IV lasix. Plan to reassess pt and response to medications. Needs better rate control. Pt signed out to oncoming provider at shift change. Departure - Departure Clinical Impression: Leg edema, Cardiomyopathy, Atrial flutter Condition: Fair Forms: PCP List
--- NOTE | 2023-05-24 08:36 | XRAY Report ---
PROCEDURE: Chest 1 View X-Ray INDICATIONS: SOA TECHNIQUE: One view of the chest was acquired. COMPARISON: 04/22/2023 FINDINGS: Surgical changes and devices: None. Lungs and pleura: Mild interstitial prominence. No drainable pleural effusion or dense consolidation . Mediastinum: Mild to moderate cardiomegaly Bones and chest wall: Degenerative changes. IMPRESSION: Mild cardiomegaly. Mild interstitial prominence, findings could represent edema versus infection. Con nurse infection control future imaging surveillance to assess for resolution. Agree with preliminary report. Reviewed by: Kalyan Keenan MD on 05/24/2023 8:35 AM PST Approved by: Kalyan Keenan MD on 05/24/2023 8:35 AM PST Station ID: [id number]
[2023-05-24] MEDS ORDERED: KETOROLAC 15 MG/ML VIAL IVP STA (09:27)
[2023-05-24] MEDS ORDERED: HYDROmorphone 0.5 MG/0.5 ML SYRINGE IVP STA (09:28)
--- NOTE | 2023-05-24 09:56 | XRAY Report ---
PROCEDURE: Chest 1 View X-Ray INDICATIONS: right chest pain onset shortly ago TECHNIQUE: One view of the chest was acquired. COMPARISON: 05/24/2023 at 0520 hours. FINDINGS: Surgical changes and devices: None. Lungs and pleura: No pleural effusions or pneumothorax. Question mild interstitial pulmonary edema, not significantly changed. Mediastinum: Mediastinal contours appear normal. Cardiomegaly. Bones and chest wall: No suspicious bony lesions. Overlying soft tissues appear unremarkable. IMPRESSION: Cardiomegaly with question mild interstitial pulmonary edema. No significant change. Reviewed by: Kofi Streeter MD on 05/24/2023 9:55 AM PST Approved by: Kofi Streeter MD on 05/24/2023 9:55 AM PST Station ID: [id number]
[2023-05-24] MEDS ORDERED: FUROSEMIDE 20 MG/2 ML VIAL IVP STA (10:41)
[2023-05-24] MEDS ORDERED: MAGNESIUM OXIDE 400 MG TABLET PO STA (10:41)
[2023-05-24] MEDS ORDERED: POTASSIUM BICARB 25 MEQ TABLET PO STA (10:41)
[2023-05-24] MEDS ORDERED: SODIUM CHLORIDE 0.9% 500 ML IV STA (14:57)
--- NOTE | 2023-05-24 16:12 | ED Physician Documentation ---
ED Addendum - Addendum Addendum: 05/24/23 16:09 The patient has had longstanding apparent atrial fibrillation/flutter. It is unclear how long this has been but it review of her prior ER visits have shown a heart rate 1 10-1 20 fairly consistently. She had been given an extra dose of beta-margarette here with heart rate now approximately 110 which is reasonable rate control for apparent A-fib flutter. Her blood pressure did drop transiently. She had been given diuretics because of apparent CHF with dyspnea. However blood pressure did persist a little bit low suggesting intravascular volume depletion. She was given a small amount of fluid bolus. Her blood pressure seemed just normotensive now. Her oxygenation is adequate. I do not see indication necessarily for admission. We can have her take her usual diuretic spironolactone. It is not clear that she has been taking it though she says it has been. She can continue her metoprolol that she just picked up at the pharmacy. She states she has been on the Eliquis so it is unclear how consistently. I could suggest a added diuretic in the short-term adding hydrochlorothiazide. The patient does complain of general weakness but is able to sit up in dress herself slowly here. Social work did arrange transportation home for her. She does appear generally tired and weak. She states her last meth use was 4 to 5 days ago but she does not appear to be in any withdrawal or side effects from that. Mostly cysts tired and sleepy. Disposition: The patient discharged home in stable condition Diagnoses: 1. General weakness 2. Dyspnea 3. Fluid overload 4. Polysubstance abuse
[2023-05-24 16:31] VITALS: BP 101/78; O2SAT 99
== END 2023-05-24 16:28 | disposition home or self-care (01) ==
LOC: EDUNIT# → ED 04:12
DX: R22.43 Localized swelling, mass and lump, lower limb, bilateral (principal); I48.92 Unspecified atrial flutter; R06.00 Dyspnea, unspecified; R53.1 Weakness; F19.10 Other psychoactive substance abuse, uncomplicated; Z79.01 Long term (current) use of anticoagulants; I10 Essential (primary) hypertension; F17.200 Nicotine dependence, unspecified, uncomplicated; I42.9 Cardiomyopathy, unspecified
CPT/HCPCS: 36415; 71045; 80053; 83880; 84484; 85025; 93005; 96374; 96375; 99284; 99285; A9270; J1170

== ENCOUNTER 2023-05-25 19:49 | Outpatient (CLI) | payer MEDICARE, MEDICAID | END 2023-05-25 19:50 | disposition critical access hospital (66) | LOC: EMS 19:49 | DX: R60.0 Localized edema (principal); M79.605 Pain in left leg; R06.02 Shortness of breath; R11.0 Nausea; R42 Dizziness and giddiness; R53.1 Weakness | CPT/HCPCS: A0425; A0429 ==

== ENCOUNTER 2023-05-25 20:07 | Emergency (ER) | payer MEDICARE, MEDICAID ==
[2023-05-25] MEDS ORDERED: DEXTROSE 50% ABBOJECT 25 GM/50 ML SYRINGE ONE (20:30)
[2023-05-25] MEDS ORDERED: SODIUM CHLORIDE 0.9% 500 ML IV STA (20:45)
[2023-05-25] MEDS ORDERED: ONDANSETRON 4 MG/2 ML VIAL ONE (20:48)
[2023-05-25] MEDS ORDERED: ONDANSETRON 4 MG/2 ML VIAL IVP STA (21:06)
[2023-05-25] MEDS ORDERED: DEXTROSE 50% ABBOJECT 25 GM/50 ML SYRINGE IVP STA (21:06)
[2023-05-25 21:12] LABS: BASOPHILS % (AUTO) 0.6 %; HCT - HEMATOCRIT 40.2 % (37.0-47.0); HGB - HEMOGLOBIN 12.4 g/dL (12.0-16.0); LYMPHOCYTES % (AUTO) 8.2 %; MEAN CORPUSCULAR HEMOGLOBIN 25.9 pg (27.0-31.0); MEAN CORPUSCULAR HGB CONC 30.8 g/dL (32.0-36.0); MEAN CORPUSCULAR VOLUME 83.9 fL (81.0-99.0); MEAN PLATELET VOLUME 10.2 fL (7.9-10.8); MONOCYTES % (AUTO) 3.7 %; NEUTROPHILS % (AUTO) 87.3 %; PLT - PLATELET COUNT 256 10^3/uL (130-450); RED BLOOD COUNT 4.79 10^6/uL (4.20-5.40); RED CELL DISTRIBUTION WIDTH 19.1 % (12.0-15.0); WHITE BLOOD COUNT 4.9 x10^3/uL (4.8-10.8)
[2023-05-25 21:18] LABS: ABNORMAL LYMPHS % (MANUAL) 0 %
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
[2023-05-25 21:26] LABS: INR 2.6 (0.8-1.2); PT - PROTHROMBIN TIME 27.1 secs (9.9-12.6)
[2023-05-25 21:29] LABS: ALBUMIN/GLOBULIN RATIO 1.5 (1.0-2.2); BILIRUBIN,TOTAL 2.4 mg/dL (0.2-1.0); CALCIUM 8.9 mg/dL (8.5-10.3); CREATININE 2.1 mg/dL (0.6-1.3); POTASSIUM 4.7 mmol/L (3.5-4.5)
[2023-05-25] MEDS ORDERED: SODIUM CHLORIDE 0.9% 1,000 ML IV STA ×2 (21:35→23:08)
[2023-05-25 21:48] LABS: BAND NEUTROPHILS % (MANUAL) 12 %; LYMPHOCYTES # (MANUAL) 0.6 10^3/uL (1.5-3.5); LYMPHOCYTES % (MANUAL) 9 %; METAMYELOCYTES % (MANUAL) 1 %; MONOCYTES # (MANUAL) 0.1 10^3/uL (0.0-1.0); NEUTROPHILS # (MANUAL) 4.1 10^3/uL (1.5-6.6); REACTIVE LYMPHS % (MANUAL) 4 %
[2023-05-25 21:49] LABS: DIFFERENTIAL COMMENT MANUAL DIFFERENTIAL; PLATELET ESTIMATE, MANUAL NORMAL (130-450,000) (NORMAL); PLATELET MORPHOLOGY NORMAL APPEARANCE (NORMAL)
[2023-05-25 22:21] LABS: GLUCOSE, URINE (UA) NEGATIVE (NEGATIVE); KETONES,URINE (UA) TRACE mg/dL (NEGATIVE); LEUKOCYTE ESTERASE, URINE NEGATIVE (NEGATIVE); NITRITE,URINE POSITIVE (NEGATIVE); OCCULT BLOOD,URINE NEGATIVE (NEGATIVE); PH,URINE 5.5 PH (5.0-7.5); PROTEIN,URINE 30 mg/dL (NEGATIVE); UROBILINOGEN,URINE 1 (NORMAL) E.U./dL (NORMAL)
[2023-05-25 22:23] LABS: BILIRUBIN,URINE MODERATE (NEGATIVE); CLARITY,URINE HAZY (CLEAR); ICTOTEST,URINE POSITIVE
[2023-05-25 22:33] LABS: AMORPHOUS SEDIMENT,UR Few /LPF; BACTERIA,URINE Few /HPF (None Seen); CASTS, URINE 26-50 Hyaline Casts /LPF; EPITHELIAL CELLS,UR FEW Transitional /HPF (<= Few); MUCUS,URINE Moderate Strands; RBC,URINE 0-5 /HPF (0-5); SQUAMOUS EPITHELIAL CELL,UR RARE Squamous (<= Few); WBC,URINE 0-3 /HPF (0-5)
[2023-05-25 22:34] LABS: CRYSTALS,URINE 26-50 Uric Acid /LPF
--- NOTE | 2023-05-25 22:42 | XRAY Report ---
PROCEDURE: Chest 1 View X-Ray INDICATIONS: Chest pain TECHNIQUE: One view of the chest was acquired. COMPARISON: 12 cm Limited 2222 FINDINGS: Surgical changes and devices: None. Lungs and pleura: No pleural effusions or pneumothorax. Lungs are clear. Mediastinum: Mediastinal contours appear normal. Heart size is enlarged. Bones and chest wall: No suspicious bony lesions. Overlying soft tissues appear unremarkable. IMPRESSION: No acute pulmonary process. Reviewed by: Herminia Palencia MD on 05/25/2023 10:41 PM [facility] Approved by: Herminia Palencia MD on 05/25/2023 10:41 PM [facility] Station ID: [id number]
--- NOTE | 2023-05-25 22:45 | XRAY Report ---
PROCEDURE: Knee 4 View LT INDICATIONS: fall/pain TECHNIQUE: 4 views of the knee(s) were acquired. COMPARISON: None. FINDINGS: Bones: No fractures or dislocations. No suspicious bony lesions. Soft tissues: Mild knee joint effusion. No suspicious soft tissue calcifications or masses. IMPRESSION: No visualized acute fracture or dislocation. However, occult injury cannot be excluded. Recommend mary rt interval imaging follow-up in 7-10 days as clinically indicated for additional evaluation. Reviewed by: Herminia Palencia MD on 05/25/2023 10:44 PM PST Approved by: Herminia Palencia MD on 05/25/2023 10:44 PM PST Station ID: [id number]
--- NOTE | 2023-05-25 22:46 | XRAY Report ---
PROCEDURE: Hip w/Pelvis 2-3V LT INDICATIONS: fall/pain TECHNIQUE: AP pelvis with lateral view(s) of the left hip(s). COMPARISON: X-ray hip 01/03/2022 FINDINGS: Bones: No fractures or dislocations. No suspicious bony lesions. Soft tissues: No suspicious soft tissue calcifications or masses. IMPRESSION: No visualized acute fracture or dislocation. However, occult injury cannot be excluded. Recommend mary rt interval imaging follow-up in 7-10 days as clinically indicated for additional evaluation. Reviewed by: Herminia Palencia MD on 05/25/2023 10:45 PM PST Approved by: Herminia Palencia MD on 05/25/2023 10:45 PM PST Station ID: [id number]
--- NOTE | 2023-05-25 22:48 | Ultrasound Report ---
PROCEDURE: Doppler Limited INDICATIONS: swelling/cold TECHNIQUE: Limited evaluation of the lower extremity vasculature. COMPARISON: None. FINDINGS: There is monophasic flow with diminutive velocity in the left posterior tibial artery as well as dors maurisio pedis artery measuring 14.9 cm/s at 13.1 cm/s. The right posterior tibial artery is not identifi ed. Monophasic flow is identified in the dorsalis pedis artery on the right with velocity of 28.4 cm. IMPRESSION: Diminutive or nonvisualized flow within the distal arterial vasculature as above. Reviewed by: Herminia Palencia MD on 05/25/2023 10:46 PM PST Approved by: Herminia Palencia MD on 05/25/2023 10:46 PM PST Station ID: [id number]
--- NOTE | 2023-05-25 22:49 | Ultrasound Report ---
PROCEDURE: Duplex Ext Veins Left INDICATIONS: swelling/cold/red TECHNIQUE: Real-time imaging, as well as color and pulse Doppler interrogation, were performed of the lower extr emity deep veins from the inguinal ligament to the popliteal fossa. Attempted visualization of the ca lf veins was performed. COMPARISON: None. FINDINGS: Exam is limited secondary to inability for full compression of vascular venous structures. The deep veins are normally compressible, and free of intraluminal thrombus. Color and pulse Dopple r demonstrate normal phasic intraluminal flow. There is normal augmentation response to distal compr ession maneuver. IMPRESSION: No deep venous thrombosis of the visualized lower extremity, noting limited exam. Reviewed by: Herminia Palencia MD on 05/25/2023 10:47 PM PST Approved by: Herminia Palencia MD on 05/25/2023 10:47 PM PST Station ID: [id number]
[2023-05-25] MEDS ORDERED: cefTRIAXone 1 GM in SODIUM CHLORIDE 0.9% MINIBAG 100 ML IV STA (23:06)
--- NOTE | 2023-05-25 23:10 | CT Report ---
PROCEDURE: HEAD WO INDICATIONS: L leg weakness/fall TECHNIQUE: Noncontrast 4.5 mm thick angled axial sections acquired from the foramen magnum to the vertex. For r adiation dose reduction, the following was used: automated exposure control, adjustment of mA and/or kV according to patient size. COMPARISON: None. FINDINGS: Image quality: Excellent. CSF spaces: Basal cisterns are patent. No extra-axial fluid collections. Ventricles are normal in size and shape. Brain: No midline shift. No intracranial masses or hemorrhage. Engel-white matter interface is norm al. Skull and face: Calvarium and visualized facial bones are intact, without suspicious lesions. Sinuses: Visualized sinuses and mastoids are clear. IMPRESSION: 1. No acute intracranial process. Reviewed by: Herminia Palencia MD on 05/25/2023 11:09 PM PST Approved by: Herminia Palencia MD on 05/25/2023 11:09 PM PST Station ID: [id number]
[2023-05-25] MEDS ORDERED: VANCOMYCIN INJ 1.75 GM in SODIUM CHLORIDE 0.9% 500 ML IV SCH (23:45)
[2023-05-25] MEDS ORDERED: cefTRIAXone 1 GM VIAL ONE (23:51)
[2023-05-26] MEDS ORDERED: NOREPINEPHRINE/0.9 % NS 8 MG/250 ML BAG IV SCH (01:00)
[2023-05-26] MEDS ORDERED: DOBUTamine 500 MG/250 ML 500 MG/250 ML BAG IV STA (01:18)
[2023-05-26] MEDS ORDERED: DIGOXIN 125 MCG TABLET PO STA (01:19)
[2023-05-26] MEDS ORDERED: VANCOMYCIN 1 GM VIAL ONE (01:23)
--- NOTE | 2023-05-26 01:24 | XRAY Report ---
PROCEDURE: Chest for Line Placement INDICATIONS: central line TECHNIQUE: One view of the chest was acquired. COMPARISON: Chest x-ray 05/25/2023 FINDINGS: Surgical changes and devices: Right-sided central venous catheter is present with distal tip projecti ng over the proximal SVC. Lungs and pleura: No pleural effusions or pneumothorax. Lungs are clear. Mediastinum: Mediastinal contours appear normal. Heart size is enlarged. Bones and chest wall: No suspicious bony lesions. Overlying soft tissues appear unremarkable. IMPRESSION: No acute pulmonary process. Reviewed by: Herminia Palencia MD on 05/26/2023 1:22 AM PST Approved by: Herminia Palencia MD on 05/26/2023 1:22 AM PST Station ID: [id number]
[2023-05-26 01:44] LABS: CALCIUM 8.3 mg/dL (8.5-10.3); CREATININE 1.9 mg/dL (0.6-1.3); POTASSIUM 4.8 mmol/L (3.5-4.5)
[2023-05-26] MEDS ORDERED: fentaNYL 100 MCG/2 ML VIAL IVP STA (01:56)
[2023-05-26 02:07] VITALS: O2SAT 92
[2023-05-26] MEDS ORDERED: fentaNYL 100 MCG/2 ML VIAL ONE (02:12)
[2023-05-26] MEDS ORDERED: DEXTROSE 50% ABBOJECT 25 GM/50 ML SYRINGE IVP STA (02:13)
[2023-05-26 02:25] VITALS: BP 90/62
== END 2023-05-26 03:06 | disposition short-term general hospital (02) ==
LOC: EDUNIT# → ED 20:07
DX: A41.9 Sepsis, unspecified organism (principal); L03.116 Cellulitis of left lower limb; R65.21 Severe sepsis with septic shock; N17.9 Acute kidney failure, unspecified; I95.9 Hypotension, unspecified; E16.2 Hypoglycemia, unspecified; I73.9 Peripheral vascular disease, unspecified; E87.20 Acidosis, unspecified; D72.825 Bandemia; E87.1 Hypo-osmolality and hyponatremia; I48.92 Unspecified atrial flutter; R00.0 Tachycardia, unspecified; F15.10 Other stimulant abuse, uncomplicated; F17.200 Nicotine dependence, unspecified, uncomplicated
CPT/HCPCS: 36415; 36556; 51701; 70450; 71045; 73502; 73564; 80048; 80053; 81001; 83605; 83690; 83880; 84484; 85025; 85610; 87040; 87086; 93005; 93971; 93976; 96361; 96365; 96375; 96376; 99285; 99291; A9270; J1250; J3370; 81003; 82803